=== PATIENT | male | born 1960 | race Caucasian/White ===

== ENCOUNTER → 2017-08-15 10:00 | Outpatient (CLI) | payer OTHER, SELFPAY ==
--- NOTE | 2017-08-15 | ASPIG_PTH ---
PATIENT: GUERRERO PLATA LOC: [facility]#:[id number] AGE/SX: 64/M ROOM: RE08/15/[address]: Dr. Misti Sotomayor MD : 1960 BED: DIS: SPEC #: [id number] RECD: 08/15/17 11:32 STATUS: DOM ENRIKE #: [id number] MARLENE: 08/15/17 00:[address]: Misti Sotomayor DEPT: CYTOLOGY RECD BY: Riley Gaitan ENTERED: 08/15/17 11:32 SP TYPE: ASP OUT OTHR DR: Dr. Demarco Hernandez MD Tissues: Thyroid gland, NOS Procedures: FNA Specimen Adequacy Pap Stain (control) Special Stain Group II Surgery Specimen Level IV Diff Quik Stain (control) Cell Block Cytology Other HEADER OPERATION: Thyroid FNA PRE-OP DIAGNOSIS: Right thyroid nodule TISSUE SUBMITTED: Right thyroid nodule DIAGNOSIS CYTOLOGY Right thyroid nodule, ultrasound-guided FNA (smears, cell block and cytospin): Paucicellular specimen with a few benign follicular cells. See cytology study and comment. SJ:rg 08/16/17 COMMENT The specimen is evaluated at the time of FNA by Dr. Parmar. Immediate Evaluation = Follicular cells are present. Correlation with clinical, radiologic findings and appropriate follow up are necessary. Please make reference to previous cytologies ([id number]) FNA, right thyroid nodule with diagnosis of consistent with colloid nodule, ([id number]) right thyroid nodule with diagnosis of bloody specimen and ([id number]) right thyroid nodule, ultrasound-guided FNA with diagnosis of consistent with benign follicular nodule. CYTOLOGY STUDY Slides are reviewed. The specimen is limited in evaluation due to lack of adequate number of follicular cells. The cell block is acellular. The smears and cytospin slides consist of only a few clusters of benign follicular cells and small amount of colloid. CYTOLOGY GROSS Received is 0.2 ml of reddish fluid labeled with the patient's name, and designated right thyroid nodule. Four imprints and three paps are made from the submitted fluid and the rest is added to CytoLyt for cell block preparation. Submitted for cytology study. / AM:vania 08/15/17 TC: Cannot code CPT: 52273, 05629, [id number], [id number]
--- NOTE | 2017-08-15 10:04 | US_ITS ---
STUDY: THYROID ULTRASOUND REASON FOR EXAM: Male, 56 years old. Ultrasound guided biopsy of 2 nodules in the right lobe of the thyroid. TECHNIQUE: Ultrasound evaluation of the thyroid was performed with real-time and static suarez-scale imaging. COMPARISON: None. FINDINGS: Under direct sonographic guidance, the surgeon performed an aspiration biopsy of 2 dominant nodules in the right lobe. US/US Thyroid Biopsy IMPRESSION: Successful ultrasound-guided biopsy of 2 and nodules in the right lobe of the thyroid. Electronically Signed: Donal Rodriges MD at 8:05 EDT Tel [phone], Service support ,
--- NOTE | 2017-08-15 21:59 | PCM.OPRPT ---
Report of Operation Date of Procedure: 08/15/17 Pre-Operative Diagnosis: right thyroid nodule Post-Operative Diagnosis: same Surgery/Procedure Performed:: US guided FNA of right thyroid nodule Description of Surgical Findings:: right thyroid nodule with calcifications - posterior in patient with thick neck Type of Anesthesia:: Local Anesthesiologist: none Specimen's removed: FNA of thyroid nodule - right Estimated Blood Loss (mL): minimal Fluids Replaced: none Description of Procedure: After informed consent was given, the patient was brought to the ultrasound suite, and placed in the supine position. Appropriate time out protocol was followed. Using the ultrasound transducer, the suspicious lesion was localized and noted. It was in the right thyroid lobe. The skin at where the biopsy needle would be inserted was then cleansed with betadyne and the skin and subcutaneous tissues at the biopsy site were infiltrated with 1% xylocaine. Using the US transducer as a guide, I guided the 22G needle attached to a 10 cc syringe into the right thyroid nodule. The needle was aspirated multiple times and then the needle was then withdrawn and with syringe was passed to the pathologist who immediately made slides for review. The needle was aspirated and then the needle was withdrawn and with syringe was passed to the pathologist who immediately made slides for review. The pathologist stated that the specimen was adequate for review. Hemostasis was controlled with pressure. A bandaid was applied to the site. The patient tolerated the procedure well. He was discharged from the radiology suite in stable condition. - Complications none noted
== END ==
PROVIDERS: Family Provider Family Medicine; PCP Family Medicine; Visit Provider Surgery
DX: E04.1 Nontoxic single thyroid nodule (principal)
CPT/HCPCS: 10022; 76942; 88161; 88172; 88305; 88313

== ENCOUNTER 2017-11-18 07:18 | Emergency (ER) | payer OTHER, SELFPAY ==
[2017-11-18 07:20] VITALS: BP 178/96; PULSE 92; RESP 16; TEMP 36.5; O2SAT 98; BMI 36.6
--- NOTE | 2017-11-18 07:38 | CT_ITS ---
STUDY: CT SOFT TISSUE NECK WITH CONTRAST REASON FOR EXAM: Male, 57 years old. History of thyroidectomy evaluate for abscess. RADIATION DOSAGE (If Supplied By Facility): CTDIvol = ( ) mGy, DLP = ( ) mGycm TECHNIQUE: The patient was scanned in a multi-detector CT scanner. High resolution transaxial imaging was performed following intravenous administration of 100 ml of Isovue 300 contrast material. Sagittal and coronal images were reconstructed. Individualized dose optimization techniques were used for this CT. COMPARISON: None. FINDINGS: There are punctate radiopaque densities anterior to the left side sternoclavicular muscle and posterior to the left side parotid gland. Normal bilateral tile conduit layer spaces. Normal bilateral parapharyngeal spaces. There is calcification of the bilateral carotid bulbs without stenosis. Normal bilateral sublingual and submandibular glands and spaces. Normal visualized nasopharynx. Normal retropharyngeal space. Normal perivertebral space. Normal visualized bilateral faucial tonsils. The visualized tongue, tongue base and oropharynx are normal. There are submandibular lymph nodes. There is peripheral soft tissue swelling and edema within the all soft tissues underlying the mandible. Normal epiglottis, bilateral vallecula and hypopharynx. The pre-epiglottic and paraglottic adipose spaces are normal. Normal visualized bilateral piriform sinuses, aryepiglottic folds, vocal cords, and arytenoid-cricoid articulations. Normal subglottic trachea. There is partial absence of the right-sided thyroid gland and postoperative change surgical clips. There is mild inhomogeneity of the left thyroid gland and a focal area of low attenuation measuring 5.2 mm. In the soft tissues deep to the skin and anterior to the hyoid bone there is a well-circumscribed peripherally enhancing fluid mass measures at least 6.1 x 1.8 x 3.3 cm. There is no evidence of bony erosion. The posterior aspect of this abscess is in close proximity to a branch of the external jugular vein. This vessel measures 5.2 mm and is best seen on sagittal image #45 courses coursing behind this abscess. Normal visualized pulmonary apices. There is near opacification of the right-sided maxillary sinus. There is ethmoid sinus mucosal thickening sphenoid sinus mucosal thickening left-sided maxillary mucosal thickening and partial opacification of the sphenoid sinuses. There is mild degenerative change in the cervical spine. CT/Soft Tissue Neck WITH Contrast IMPRESSION: There is a 6.1 x 1.8 x 3.3 cm superficial abscess anterior to the thyroid. There is adjacent cellulitis. There is reactive lymphadenopathy. Anatomic note should be made there is a prominent vessel behind this abscess. Partial right-sided thyroidectomy. Small 5.2 mm low attenuating nodule left thyroid. Electronically Signed: Paula Arcos MD at 9:21 EDT Tel , Service support ,
--- NOTE | 2017-11-18 08:04 | ED.VISSUMM ---
- ER Visit Summary Date of Service: 11/18/17 Chief Complaint: Possible neck abscess History of Present Illness: The patient is a 57 M who presents with swelling of his anterior neck that began this morning. Patient states he woke up and noticed some swelling over his anterior neck today. Patient states it feels like there is some pressure there. Patient had a partial thyroidectomy done a couple months ago at the [facility]. Patient states the swelling is over the surgical site. Patient is concerned over possible abscess to this area. Patient denies any fevers or chills. Patient denies any difficulty breathing or difficulty swallowing. Physical Examination: Vital signs are stable. Patient is afebrile. Patient is in no acute distress. Oral mucosa is pink and moist. Oropharynx is clear. Airway is patent. Neck is supple. There is edema, erythema, and induration of the anterior neck. I do not appreciate any fluctuance over this area. There is no adenopathy noted. Heart was regular rate and rhythm. Lungs are clear and equal bilaterally. There is good respiratory effort noted. The remaining physical exam is within normal limits. Test Results: CT scan of the soft tissue neck was obtained. There is a abscess to the anterior neck area. There is a prominent blood vessel behind the abscess. Emergency Department Course and Treatment: Patient was given a dose of Unasyn here. Due to the prominent blood vessel behind the abscess I do not feel comfortable performing an incision and drainage here in the emergency department. Patient has a surgeon at [facility] who performed his thyroid surgery 2 months ago. There was a delay in contacting the surgeon at [facility]. Dr. Medina from [facility] did return our call and accepted transfer the patient. Patient was transferred by his private vehicle. Disposition: Transferred to [facility] Impression: Neck abscess This note was generated with [employer] dictation software. It may contain incorrect words, spelling, and punctuation that were not noted in review of the chart prior to signing ED Disposition - Plan for ED Patient: Disposition: [facility] Chief Complaint: Abscess Diagnosis: Neck abscess Referrals: Demarco Hernandez MD [Primary Care Provider] -
[2017-11-18 08:07] LABS: Absolute Lymphocyte Count 1.57 X10^3/ul (0.83-4.51); Absolute Neutrophil Count 5.7 X10^3/uL (2.0-7.7); Basophil# 0.03 X10^3/uL; Basophil% 0.4 % (0-1); Eosinophil# 0.26 X10^3/uL; Eosinophils% 3.2 % (0-5); Hemoglobin 15.9 g/dl (13.0-16.5); Lymphocyte # 1.57 X10^3/ul (4.0); Lymphocyte % 19.3 % (19-41); Mean Corp Hgb Conc 35.3 g/gl (32-36); Mean Corpuscular Hgb 33.2 pg (27.0-32.0); Mean Corpuscular Volume 93.9 fL (80-94); Mean Platelet Vol. 11.1 fl (6.2-12.0); Monocyte# 0.51 X10^3/uL; Monocyte% 6.3 % (0-10); Neutrophil # 5.74 X10^3/uL (2.7-7.7); Neutrophil % 70.6 % (47-70); Platelet Count 132 K/mm3 (150-450); RBC Distribution Width CV 12.6 % (11.6-14.6); RBC Distribution Width SD 42.9 fl (35.1-43.9); Red Blood Count 4.79 M/mm3 (4.6-6.2); White Blood Count 8.1 K/mm3 (4.4-11.0)
[2017-11-18 08:08] LABS: POSITIVE COUNT NO; POSITIVE DIFFERENTIAL NO; POSITIVE MORPHOLOGY NO
[2017-11-18 08:14] LABS: Anion Gap 10 (5-15); BUN 12 mg/dL (7-18); BUN/Creat Ratio 10.2 RATIO (10-20); Calcium,Total 8.8 mg/dL (8.5-10.1); Chloride 104 mmol/L (98-107); Creatinine, Serum 1.18 mg/dL (0.70-1.30); EST Glomerular Filtration Rate 67 mL/min (>60); Est Glom Filt Rate - Afr Amer 82 mL/min (>60); Estimated Creatinine Clearance 66.02 ml/min; Glucose 182 mg/dL (74-106); Potassium 3.3 mmol/L (3.5-5.1); Sodium Level 140 mmol/L (136-145)
[2017-11-18 11:07] VITALS: BP 129/85; PULSE 51; RESP 16; O2SAT 95
[2017-11-18 13:15] VITALS: BP 129/85; PULSE 51; RESP 16; O2SAT 95
--- NOTE | 2017-11-18 13:17 | ED.RN ---
attempted to call report to [facility] and nurse unable to take call at this time.
== END 2017-11-18 13:00 | disposition short-term general hospital (02) ==
LOC: ED 07:39
PROVIDERS: Emergency Provider Emergency Medicine; Family Provider Family Medicine; PCP Family Medicine
DX: L02.11 Cutaneous abscess of neck (principal); I10 Essential (primary) hypertension; K21.9 Gastro-esophageal reflux disease without esophagitis
CPT/HCPCS: 70491; 80048; 85025; 96374; 99284; J7050; Q9967; A4216; J0295

== ENCOUNTER 2020-05-07 22:48 | Emergency (ER) | payer OTHER, SELFPAY ==
[2020-05-07 22:50] VITALS: BP 170/90; PULSE 76; RESP 16; TEMP 36.8; O2SAT 99; BMI 38.0
--- NOTE | 2020-05-07 23:07 | RAD_ITS ---
STUDY: X-RAY - UNILATERAL RIBS ( RIGHT ) WITH CHEST REASON FOR EXAM: Male, 59 years old. Fall, right posterior rib pain. TECHNIQUE - RIBS: 4 view(s) of the ribs. TECHNIQUE - CHEST: Single frontal view of the chest. COMPARISON: None. FINDINGS - RIBS: Normal visualized ribs without a demonstrated fracture. FINDINGS - CHEST: The lungs are clear and expanded. There is no demonstrated pleural abnormality. Normal size heart. Normal mediastinum and michael. Normal visualized pulmonary arteries. Normal visualized aortic arch and descending thoracic aorta. There are diffuse degenerative changes of the visualized thoracic spine. Normal visualized ribs, clavicles, and shoulders. There is no demonstrated abnormality of the visualized soft tissue structures of the upper abdomen. RAD/Ribs Uni Min 3V w/PA Chest IMPRESSION: RIBS: Normal x-ray examination of the ribs. CHEST: No acute cardiopulmonary process. Electronically Signed: Gianna Andrade MD at 23:49 EST Tel , Service support ,
--- NOTE | 2020-05-07 23:09 | ED.VIS.GEN ---
History of Present Illness Chief Complaint: Fall Informant: Patient Onset: Today Narrative: 59-year-old male presenting with right posterior rib pain and right hip pain. Patient states that he slipped and fell on his driveway today. Initially he did not have too much pain but he states over the course of the day it has been getting worse. Patient denies shortness of breath. Patient is ambulatory. He states it feels like he pulled his groin on the right. Denies paresthesias. Patient denies hitting his head or LOC. Past Medical History - Allergies and Home Meds Allergies/Adverse Reactions: Allergies No Known Allergies Allergy (Verified 05/07/20 22:49) Primary Care Physician: Demarco Hernandez MD [Primary Care Provider] - Prior records reviewed: Yes Past Medical History: - Lives: Spouse/ Significant Other Smoking Status: Former smoker Alcohol: None Drugs: None - Hypertension, GERD hypothyroidism Review of Systems General: Denies: Chills, Fever Eyes: Denies: Visual changes - left, Visual changes - right ENT: Denies: Bilateral ear pain, Left ear pain Cardiovascular: Denies: Chest pain, Palpitations Respiratory: Reports: - - Right posterior rib pain. Denies: Dyspnea, Cough Gastrointestinal: Denies: Abdominal pain, Nausea Musculoskeletal: Reports: Extremity Pain - Right inguinal pain. Denies: Swelling Skin: Denies: Rash, Abscess Neurological: Denies: Headache, Weakness Physical Exam Vital Signs/Narrative: Vital Signs Temp Pulse Resp BP Pulse Ox 05/07/20 22:50 98.2 F 76 16 170/90 H 99 General: Well nourished, No Acute Distress Head: Normocephalic, Atraumatic Eyes: Perrl, EOMI ENT: Moist mucous membranes, No rhinorrhea Cardiovascular: Regular rate, Regular rhythm Respiratory: No distress, CTA bilaterally, - - Full symmetric breath sounds and chest wall rise. No crepitance. Tenderness to palpation right posterior ribs. No ecchymosis or abrasions. Extremities: - - Is to palpation right inguinal area. Negative logroll right hip. Patient able to stand and walk across the room Skin: Normal color, No rash Neurological: Alert, Oriented x3 Psychological: Normal affect, Normal Mood Diagnostic/Tx/Re-eval Clinical Impression(s) from Imaging Studies Ribs w/Chest X-Ray 05/07/20 23:07 IMPRESSION: RIBS: Normal x-ray examination of the ribs. CHEST: No acute cardiopulmonary process. Electronically Signed: Gianna Andrade MD at 23:49 EST Tel , Service support , Hip/Pelvis X-Ray 05/07/20 23:22 IMPRESSION: Degenerative changes without acute osseous abnormality. at 0010 Reported and signed by: Renee Rueda MD Electronically Signed: Renee Rueda MD at 0:10 EST Tel , Service support , - Medical Decision Making 59-year-old male presenting after mechanical fall with right back pain as well as right inguinal pain. He was taken over to x-ray and complained of pain on the left hip so he had bilateral hip x-rays with the pelvis which interpreted by myself showed no acute fractures. Patient also had right rib series with PA chest that showed no obvious rib fractures and no pneumothorax as interpreted by myself. Patient was given initial dose of morphine but states he feels like he is having more of a spasm and requested a muscle relaxer and this was provided. Patient is stable for discharge home at this time. He will be given prescription for Flexeril. Impression: 1. Mechanical fall 2. Thoracic strain 3. Hip contusion ED Disposition - Plan for ED Patient: Disposition: Home or Assisted Living Instructions: ED Mechanical Fall, ED Hip Contusion, ED Thoracic Spine Strain Referrals: Demarco Hernandez MD [Primary Care Provider] -
[2020-05-07] MEDS: morphine 8 MG/ML Syringe 6 MG IM (23:11)
[2020-05-07] MEDS: Ondansetron ODT 4 MG Tablet PO (23:13)
--- NOTE | 2020-05-07 23:22 | RAD_ITS ---
HISTORY: Fall, bilateral hip pain. ADDITIONAL HISTORY: None provided. EXAMINATION/TECHNIQUE: XR Hips Bilateral with Pelvis when performed; Min 5 Views Bilateral Number of images including paperwork: 10 COMPARISON: None FINDINGS: BONES: No acute fracture. JOINTS: No subluxation. Mild degenerative changes of the hips. Degenerative changes of the sacroiliac joints, symphysis pubis and the visible spine. SOFT TISSUES: No distinct foreign body. RAD/Hips B/L min 2 views w/ Pelvis IMPRESSION: Degenerative changes without acute osseous abnormality. at 0010 Reported and signed by: Renee Rueda MD Electronically Signed: Renee Rueda MD at 0:10 EST Tel , Service support ,
[2020-05-08] MEDS: Orphenadrine 100 MG Tablet PO (00:18)
[2020-05-08 01:01] VITALS: PULSE 81; O2SAT 98
== END 2020-05-08 01:01 | disposition home or self-care (01) ==
LOC: ED 05-08 00:21
PROVIDERS: Emergency Provider Student in an Organized Health Care Education/Training Program; PCP Family Medicine
DX: S29.012A Strain of muscle and tendon of back wall of thorax, initial encounter (principal); S70.01XA Contusion of right hip, initial encounter; S70.02XA Contusion of left hip, initial encounter; W01.0XXA Fall on same level from slipping, tripping and stumbling without subsequent striking against object, initial encounter; Y93.9 Activity, unspecified; Y92.008 Other place in unspecified non-institutional (private) residence as the place of occurrence of the external cause; Y99.9 Unspecified external cause status; E03.9 Hypothyroidism, unspecified; I10 Essential (primary) hypertension; K21.9 Gastro-esophageal reflux disease without esophagitis; Z87.891 Personal history of nicotine dependence
CPT/HCPCS: 71101; 73521; 96372; 99283

== ENCOUNTER 2021-10-15 05:59 | Emergency (ER) | payer OTHER, SELFPAY ==
[2021-10-15 06:06] VITALS: BP 158/96; PULSE 55; RESP 16; TEMP 36; O2SAT 100; BMI 36.6
[2021-10-15] MEDS: Ondansetron 4 MG/2 ML Vial IV (06:32)
[2021-10-15] MEDS: Morphine 4 MG/ML Syringe IV (06:33)
[2021-10-15 06:52] LABS: Absolute Lymphocyte Count 2.01 X10^3/uL (0.83-4.51); Basophil# 0.05 X10^3/uL; Basophil% 0.6 % (0-1); Eosinophil# 0.34 X10^3/uL; Eosinophils% 4.3 % (0-5); Hematocrit 41.9 % (40-54); Hemoglobin 15.1 g/dL (13.0-16.5); Lymphocyte # 2.01 X10^3/ul (0.83-4.51); Lymphocyte % 25.7 % (19-41); Mean Corpuscular Hgb 32.3 pg (27.0-32.0); Mean Corpuscular Volume 89.7 fL (80-94); Mean Platelet Vol. 11.9 fl (6.2-12.0); Monocyte# 0.42 X10^3/uL; Monocyte% 5.4 % (0-10); NRBC Flagged by Analyzer 0 % (0-5); Neutrophil # 4.97 X10^3/uL (2.7-7.7); Neutrophil % 63.5 % (47-70); Platelet Count 136 K/mm3 (150-450); RBC Distribution Width CV 11.9 % (11.6-14.6); Red Blood Count 4.67 M/mm3 (4.6-6.2); White Blood Count 7.8 K/mm3 (4.4-11.0)
[2021-10-15 07:00] LABS: Prothrombin Time (Protime)PT. 12.8 SECONDS (11.7-14.9)
--- NOTE | 2021-10-15 07:00 | RAD_ITS ---
INDICATION: pain EXAMINATION/TECHNIQUE: X-RAY - LEFT XR Femur Min 2 Views 6 VIEWS COMPARISON: 05/07/2020 FINDINGS: SOFT TISSUES: Vascular calcifications. Soft tissue swelling in the distal thigh. No radiopaque foreign body. BONES/JOINTS: Moderately displaced comminuted spiral fracture of the distal femoral diaphysis extending to the metadiaphysis and the proximal margin of the knee arthroplasty femoral component. Mild degenerative changes, similar compared to the prior. No dislocation. RAD/Femur Min 2 Views IMPRESSION: Moderately displaced comminuted fracture of the distal femur as above. Electronically Signed: Toney Funez MD at 7:17 EDT ,
--- NOTE | 2021-10-15 07:00 | RAD_ITS ---
INDICATION: pain EXAMINATION/TECHNIQUE: X-RAY - XR Pelvis 1 or 2 Views 1 VIEWS COMPARISON: None. FINDINGS: SOFT TISSUES: No soft tissue swelling or gas. No radiopaque foreign body. BONES/JOINTS: No acute fracture or subluxation.. Normal alignment. Preservation of the joint space.. No sclerotic or destructive changes observed. RAD/Pelvis 1 or 2 Views IMPRESSION: No acute fracture or dislocation. Electronically Signed: Toney Funez MD at 7:19 EDT ,
[2021-10-15 07:01] LABS: Partial Thromboplast Time 29.5 Seconds (24.1-36.2)
[2021-10-15 07:05] LABS: Anion Gap 7 (5-15); BUN 12 mg/dL (7-18); Calcium,Total 8.9 mg/dL (8.5-10.1); Chloride 109 mmol/L (98-107); Creatinine, Serum 1.09 mg/dL (0.70-1.30); EST Glomerular Filtration Rate 73 mL/min (>60); Est Glom Filt Rate - Afr Amer 88 mL/min (>60); Estimated Creatinine Clearance 68.85 ml/min; Glucose 131 mg/dL (74-106); Potassium 3.6 mmol/L (3.5-5.1); Sodium Level 142 mmol/L (136-145)
[2021-10-15] MEDS: HYDROmorphone 1 MG/ML Syringe IV ×2 (07:14→10:24)
--- NOTE | 2021-10-15 08:00 | EX.ED.DYSGE1 ---
HPI History of Present Illness Chief Complaint: Lower Extremity Injury Narrative Narrative: Patient is a 60-year-old male with past medical history of hypertension and hypothyroidism. He has had previous left knee replacement as well. He states that this was roughly 20 years ago. He states left at 5 AM he was walking out to his car when he slipped and twisted. He states he did not strike his head or have any loss of consciousness when he fell but he had severe pain in his left lower leg/knee region. He states he was not able to stand secondary to the pain and therefore EMS was contacted to bring him in for evaluation. [facility] Medical History Hypertension Home Medications cyclobenzaprine 10 mg tablet 10 mg PO Q8H PRN PRN Muscle Spasm #21 tabs 05/08/20 [Rx Last Taken Unknown] amlodipine 10 mg tablet 1 tab PO DAILY 10/15/21 [History Last Taken Unknown] bisoprolol 5 mg-hydrochlorothiazide 6.25 mg tablet 2 tab PO DAILY 10/15/21 [History Last Taken Unknown] levothyroxine 137 mcg tablet 137 mcg PO DAILY 10/15/21 [History Last Taken Unknown] levothyroxine 137 mcg tablet 274 mcg PO QODAY 10/15/21 [History Last Taken Unknown] potassium chloride 20 mEq tablet,extended release(part/cryst) 1 tab PO DAILY 10/15/21 [History Last Taken Unknown] Allergy/AdvReac Type Severity Reaction Status Date / Time codeine Allergy Itching Verified 10/15/21 06:01 Surgical History (Updated 10/15/21 @ 06:02 by Swapnil Phillips) History of cholecystectomy History of knee replacement procedure of left knee Social History Smoking Status: Never smoker [facility] ED Constitutional Constitutional ED: Denies chills or fever(s) Eyes Eyes: Denies change in vision ENT ENT ED: Denies sore throat Cardiovascular Cardiovascular: Denies chest pain Respiratory/Chest Respiratory/Chest: Denies cough or dyspnea Gastrointestinal Gastrointestinal: Denies abdominal pain, diarrhea, nausea or vomiting Genitourinary Genitourinary ED: Denies dysuria Musculoskeletal Musculoskeletal: Reports other Details: Positive left leg/knee pain ; Denies back pain, myalgias or neck pain Integumentary Denies rash Neurologic Neurologic: Denies headache(s) Hematologic/Lymphatic Hematologic/Lymphatic: Denies easy bleeding or easy bruising EXAM Physical Exam Const Vital Signs: 10/15/21 06:06 Temperature 96.8 F L Temperature Source Temporal Pulse Rate 55 L Respiratory Rate 16 Blood Pressure 158/96 H Blood Pressure Mean 116 Pulse Ox 100 Oxygen Delivery Method Room Air Positive well nourished and well developed General Appearance ED: well developed HEENT HEENT Narrative: No signs of depressed or basilar skull fracture Eyes PERRL and EOMs intact bilaterally Neck supple Neck Narrative: No bony deformity or step-off of the cervical spine no midline pain with palpation Chest Wall palpation of chest normal Resp normal respiratory effort and clear to auscultation bilaterally Cardio regular rate and regular rhythm Rate: other Other Details: Radial pulses are plus 2 out of 4 bilaterally are equal and symmetric GI non-tender and non-distended Auscultation: normoactive bowel sounds Palpation: soft Extremity Extremity Narrative: Pelvis is stable. Bilateral lower extremities are neurovascularly intact . the left lower leg is shortened and rotated externally. There is soft tissue swelling along the distal left femur into the knee. There is pain on palpation at the site as well as along the left greater trochanter region. Active and passive range of motion of the left leg is severely limited secondary to pain. Remainder the exam is normal Neuro oriented x3 and CN's II-XII intact bilaterally Sensorium / Orientation: alert Psych mental status grossly normal Skin no rashes or lesions noted Skin Narrative: Capillary refill is less than 3 seconds MDM MDM MDM Narrative Medical decision making narrative: Patient presented to the ER after mechanical fall and therefore there is no need for cardiac or syncope work-up. Exam is concerning for a left lower leg injury such as a femoral neck or distal femur fracture. X-rays were obtained which did confirm a comminuted left distal femur fracture. The case was discussed with orthopedic on-call Dr. Marquez. He states with the patient's previous prosthetic of the left knee and the fracture extending down to it that he feels would be better suited at a higher level of care. This was discussed with the patient and he agrees to go to [facility]. Therefore they were contacted and they do agree to accept the patient at this time. Lab Data Attestation: I reviewed the patient's lab results. Labs: Laboratory Results - last 24 hr 10/15/21 10/15/21 10/15/21 06:10 06:10 06:10 WBC 7.8 RBC 4.67 Hgb 15.1 Hct 41.9 MCV 89.7 MCH 32.3 H MCHC 36.0 RDW Std Deviation 39.0 RDW Coeff of Trace 11.9 Plt Count 136 L MPV 11.9 Immature Gran % (Auto) 0.500 Neut % (Auto) 63.5 Lymph % (Auto) 25.7 [place] % (Auto) 5.4 Eos % (Auto) 4.3 Baso % (Auto) 0.6 Absolute Neuts (auto) 5.0 Absolute Lymphs (auto) 2.01 Nucleated RBC % 0 PT 12.8 INR 1.0 APTT 29.5 Sodium 142 Potassium 3.6 Chloride 109 H Carbon Dioxide 26.0 Anion Gap 7 BUN 12 Creatinine 1.09 Estim Creat Clear Calc 68.85 Est GFR (MDRD) Af Amer 88 Est GFR (MDRD) Non-Af 73 BUN/Creatinine Ratio 11.0 Glucose 131 H Calcium 8.9 Radiography Diagnostic Testing: Clinical Impression(s) from Imaging Studies Femur X-Ray 10/15/21 07:00 IMPRESSION: Moderately displaced comminuted fracture of the distal femur as above. Electronically Signed: Toney Funez MD at 7:17 EDT , Pelvis X-Ray 10/15/21 07:00 IMPRESSION: No acute fracture or dislocation. Electronically Signed: Toney Funez MD at 7:19 EDT , X-ray of the pelvis and left femur as reviewed by the emergency medicine physician shows a comminuted mildly displaced distal left femur fracture but no femoral neck or pelvic injury Discharge Plan Triage Chief Complaint: Lower Extremity Injury ED Provider: Eliseo Ivey Dx/Rx/DC Orders Clinical Impression: Closed fracture of distal end of left femur, Hypertension, Accidental fall Prescriptions: No Action cyclobenzaprine 10 MG tablet 10 mg PO Q8H PRN PRN (Reason: Muscle Spasm) Qty: 21 0RF levothyroxine 137 mcg tablet 137 mcg PO DAILY Label Comments: take 1 tablet by mouth every day except Sunday and Sunday. Take 2 tablets on Sunday and Sunday. Rx Instructions: do not take sunday and sunday levothyroxine 137 mcg tablet 274 mcg PO QODAY Label Comments: take 1 tablet by mouth every day except Sunday and Sunday. Take 2 tablets on Sunday and Sunday. Rx Instructions: sunday and sunday bisoprolol-hydrochlorothiazide 5-6.25 mg tablet 2 tab PO DAILY Label Comments: TAKE 2 TABLETS BY MOUTH EVERY DAY potassium chloride 20 mEq tablet,ER particles/crystals 1 tab PO DAILY Label Comments: Take 1 tablet by mouth once daily. amlodipine 10 mg tablet 1 tab PO DAILY Label Comments: TAKE 1 TABLET BY MOUTH EVERY DAY Primary Care Provider: Demarco Hernandez Referrals: Demarco Hernandez MD [Primary Care Provider] - Disposition Disposition: Acute Care Hospital Discharge Location: [facility]
[2021-10-15 08:37] VITALS: BP 155/40; PULSE 57; RESP 16; TEMP 36.7; O2SAT 95
== END 2021-10-15 10:54 | disposition short-term general hospital (02) ==
PROVIDERS: Emergency Provider Emergency Medicine; PCP Family Medicine; Visit Provider Emergency Medicine
DX: S72.402A Unspecified fracture of lower end of left femur, initial encounter for closed fracture (principal); I10 Essential (primary) hypertension; E03.9 Hypothyroidism, unspecified; W01.0XXA Fall on same level from slipping, tripping and stumbling without subsequent striking against object, initial encounter
CPT/HCPCS: 72170; 73552; 80048; 85025; 85610; 85730; 87428; 96374; 96375; 96376; 99285; A4216; J2405

== ENCOUNTER 2021-10-19 15:45 | Inpatient (IN) | payer OTHER, SELFPAY ==
[2021-10-19 15:55] VITALS: BP 158/79; PULSE 95; RESP 16; TEMP 36.6; O2SAT 95; BMI 21.7
[2021-10-19 16:28] VITALS: BMI 21.6
[2021-10-19] MEDS: oxyCODONE 5 MG Tablet PO ×2 (16:52→21:32)
[2021-10-19] MEDS: Senna/Docusate Sodium 1 Tablet PO (16:52)
[2021-10-19 18:55] VITALS: PULSE 99; RESP 16
--- NOTE | 2021-10-19 19:43 | HP.PCM_ITS ---
[facility] - General General Date of Admission: 10/19/21 Date of Service: 10/19/21 Chief Complaint: Here for rehab. HPI Narrative 10/15/2021 GUERRERO PLATA, is a 60 Male who presents to [facility] with fall. He slipped, injured left knee, heard pop before falling down. No loss of consciousness, no head injury. Immediate left knee pain, unable to bear weight. X-ray showed left periprosthetic distal femur fracture. Transfer to [facility]. 10/15/2021 Admit to [facility]. 10/16/2021 Orthopedics performed left retrograde femoral nail. 10/17/2021 Stop IV fluids, eating well. 10/17/2021 Pain control. Lovenox 40mg daily x 21 days for DVT prophylaxis thru 11/06/2021. Ancef 2gm q8h x 2 doses. Touch down weight bearing left lower extremity. 10/19/2021 Admit to TCU with debility, here for rehabilitation, strengthening, prior to discharge home with . [facility] Medical History (Updated 10/19/21 @ 19:[address] Collin Bangura MD) Hypertension Home Medications amlodipine 10 mg tablet 1 tab PO DAILY BP 10/15/21 [History Last Taken Unknown] bisoprolol 5 mg-hydrochlorothiazide 6.25 mg tablet 2 tab PO DAILY BP 10/15/21 [History Last Taken Unknown] levothyroxine 137 mcg tablet 137 mcg PO .MOWETHFRSA thyroid 10/15/21 [History Last Taken Unknown] levothyroxine 137 mcg tablet 274 mcg PO .TUSU thyroid 10/15/21 [History Last Taken Unknown] potassium chloride 20 mEq tablet,extended release(part/cryst) 1 tab PO DAILY supplement 10/15/21 [History Last Taken Unknown] enoxaparin 40 mg/0.4 mL subcutaneous syringe 40 mg subcut DAILY blood thinner 10/19/21 [History Last Taken Unknown] hydrochlorothiazide 12.5 mg capsule 12.5 mg PO DAILY BP/water pill 10/19/21 [History Last Taken Unknown] omega-3 fatty acids 2,000 mg PO DAILY supplement 10/19/21 [History Last Taken Unknown] omeprazole 20 mg capsule,delayed release 20 mg PO DAILY acid reflux 10/19/21 [History Last Taken Unknown] oxycodone 5 mg capsule 5 mg PO Q6H PRN Pain (Scale Score 6-10) 10/19/21 [History Last Taken Unknown] polyethylene glycol 3350 17 gram oral powder packet (Miralax) 17 g PO DAILY PRN Constipation 10/19/21 [History Last Taken Unknown] senna-docusate sodium tablet 1 tab PO BID stool softener 10/19/21 [History Last Taken Unknown] Allergy/AdvReac Type Severity Reaction Status Date / Time codeine Allergy Itching Verified 10/15/21 06:01 Family History (Updated 10/19/21 @ 19:[address] Collin Bangura MD) Mother Cancer CAD (coronary artery disease) Diabetes Father Cancer Brother Prostate cancer Surgical History (Updated 10/19/21 @ 19:[address] Collin Bangura MD) History of cholecystectomy History of knee replacement procedure of left knee History of thyroidectomy, subtotal History of umbilical hernia repair Social History (Updated 10/19/21 @ 19:[address] Collin Bangura MD) household members: spouse Smoking Status: Former smoker Smokeless tobacco user: snuff alcohol intake: current alcohol intake frequency: 0-2 drinks per day substance use type: does not use ROS Constitutional Constitutional: Denies chills, fever(s) or weight gain ENT HEENT: Denies headache(s), nasal congestion or nasal discharge Cardiovascular Cardiovascular: Denies chest pain or palpitations Respiratory/Chest Respiratory/Chest: Denies cough, excessive phlegm production or shortness of breath with exertion Gastrointestinal Gastrointestinal: Denies abdominal pain, nausea or vomiting Genitourinary Genitourinary: Denies dysuria Musculoskeletal Musculoskeletal: Denies joint pain or joint swelling Integumentary Integumentary: Denies rash or wounds Neurologic Neurologic: Denies focal weakness, numbness or tingling Psychiatric Psychiatric: Denies anxiety, auditory hallucinations, depression, homicidal ideation or suicidal ideation Vital Signs Vital Signs Vital Signs: 10/19/21 15:55 10/19/21 18:55 Temperature 97.9 F Temperature Source Oral Pulse Rate 95 99 Pulse Rhythm Irregular Pulse Strength Normal (2+) Respiratory Rate 16 16 Respiratory Effort Normal Non-Labored Respiratory Depth Normal Respiratory Pattern Normal Blood Pressure 158/79 H Blood Pressure Mean 105 Blood Pressure Source Monitor Blood Pressure Position Sitting Blood Pressure Location Right Arm Pulse Ox 95 Oxygen Delivery Method Room Air Room Air Weight Weight: 64.41 kg Body Mass Index (BMI) 21.6 Physical Exam Const alert General Appearance: cooperative HEENT normocephalic Eyes PERRL and EOMs intact bilaterally Neck supple, no JVD and no carotid bruits Resp normal respiratory effort, normal air movement and clear to auscultation bilaterally Cardio regular rate and regular rhythm GI normal to inspection, nondistended, normoactive bowel sounds, non-tender and non-distended Extremity normal capillary refill General Extremity: Negative for edema Skin no rashes or lesions noted General Skin Exam: no breakdown Psych affect normal Appearance: appropriate Assessment & Plan Assessment/Plan (1) Debility: (2) Closed fracture of distal end of left femur: (3) Gastroesophageal reflux disease: (4) Hypokalemia: (5) Hypothyroidism: (6) Hypertension: PLAN: Plan 60 year old male with below past medical history hospitalized fo left periprosthetic distal femur fracture, underwent left retrograde femoral nail 10/16/2021, admitted to TCU with debility, here for rehabilitation, strengthening, prior to discharge home with . * Debility - PT/OT. * Pain - Tylenol 1000mg q8, Tramadol 50mg q6h prn pain (1-5), Oxycodone 5mg q4h prn pain (6-10) * Bowel - Miralax 17gm daily, senna/colace 2 tablets bid, Dulcolax 10mg daily prn. * Adult immunization - Administer pneumonia vaccine, covid vaccine, flu vaccine. * DVT prophylaxis - Lovenox 40mg sc daily thru 11/06/2021. * Hypertension - Bisoprolol 10mg daily, HCTZ 12.5mg daily, Amlodipine 10mg daily. * Hypothyroidism - Levothyroxine 137mcg 5 days/week, 274mcg 2 days/week. * Hyperlipidemia - Cocoa 3 2gm daily. * GERD - Pantoprazole 20mg daily. * Hypokalemia - KCL 20meq daily.
[2021-10-19] MEDS: Acetaminophen 500 MG Tablet 1000 MG PO (21:33)
[2021-10-19] MEDS: traMADol 50 MG Tablet PO (23:22)
[2021-10-20] MEDS: oxyCODONE 5 MG Tablet PO ×5 (01:33→21:00)
[2021-10-20 05:00] VITALS: BP 135/65; PULSE 78; RESP 92; TEMP 37.2; O2SAT 92
[2021-10-20] MEDS: Enoxaparin 40 MG/0.4 ML Syringe SC (05:01)
[2021-10-20] MEDS: Polyethylene Glycol 3350 17 GM PACKET PO (05:01)
[2021-10-20] MEDS: Levothyroxine 137 MCG Tablet PO (05:01)
[2021-10-20] MEDS: Senna/Docusate Sodium 1 Tablet 2 TABLET PO ×2 (05:02→17:34)
[2021-10-20] MEDS: Omega-3 Acid Ethyl Esters 1 GM Capsule 2 GM PO (05:02)
[2021-10-20] MEDS: amLODIPine 10 MG Tablet PO (05:02)
[2021-10-20] MEDS: Pantoprazole Sodium 20 MG Tablet PO (05:02)
[2021-10-20] MEDS: Bisoprolol Fumarate 5 MG Tablet 10 MG PO (05:03)
[2021-10-20] MEDS: hydroCHLOROthiazide 6.25mg TAB 12.5 MG PO (05:04)
[2021-10-20] MEDS: Acetaminophen 500 MG Tablet 1000 MG PO ×3 (05:04→21:00)
[2021-10-20 05:47] LABS: Absolute Lymphocyte Count 1.06 X10^3/uL (0.83-4.51); Absolute Neutrophil Count 4.8 X10^3/uL (2.0-7.7); Basophil# 0.02 X10^3/uL; Basophil% 0.3 % (0-1); Eosinophil# 0.29 X10^3/uL; Eosinophils% 4.3 % (0-5); Hematocrit 25.5 % (40-54); Hemoglobin 8.6 g/dL (13.0-16.5); Lymphocyte # 1.06 X10^3/ul (0.83-4.51); Lymphocyte % 15.7 % (19-41); Mean Corp Hgb Conc 33.7 g/dL (32-36); Mean Corpuscular Hgb 32.6 pg (27.0-32.0); Mean Corpuscular Volume 96.6 fL (80-94); Mean Platelet Vol. 10.8 fl (6.2-12.0); Monocyte# 0.47 X10^3/uL; Monocyte% 6.9 % (0-10); NRBC Flagged by Analyzer 0.3 % (0-5); Neutrophil # 4.84 X10^3/uL (2.7-7.7); Neutrophil % 71.5 % (47-70); Platelet Count 154 K/mm3 (150-450); RBC Distribution Width CV 13.4 % (11.6-14.6); RBC Distribution Width SD 44.9 fl (35.1-43.9); Red Blood Count 2.64 M/mm3 (4.6-6.2); White Blood Count 6.8 K/mm3 (4.4-11.0)
[2021-10-20 06:18] LABS: Anion Gap 5 (5-15); BUN 11 mg/dL (7-18); BUN/Creat Ratio 13.3 RATIO (10-20); Calcium,Total 8.5 mg/dL (8.5-10.1); Chloride 103 mmol/L (98-107); Creatinine, Serum 0.82 mg/dL (0.70-1.30); EST Glomerular Filtration Rate 101 mL/min (>60); Est Glom Filt Rate - Afr Amer 122 mL/min (>60); Estimated Creatinine Clearance 86.19 ml/min; Glucose 129 mg/dL (74-106); Potassium 3.6 mmol/L (3.5-5.1); Sodium Level 137 mmol/L (136-145)
[2021-10-20] MEDS: Potassium Chloride Oral Tablet 20 MEQ PO (08:49)
[2021-10-20] MEDS: Tuberculin,Purif.prot.deriv. 50 TU/ML Vial 0.1 ML ID (11:27)
[2021-10-20] MEDS: traMADol 50 MG Tablet PO (13:51)
[2021-10-20 16:00] VITALS: BP 116/64; PULSE 68; RESP 16; TEMP 36.7; O2SAT 96
[2021-10-20] MEDS: Bisacodyl 5 MG Tablet 10 MG PO (21:00)
[2021-10-20 23:00] VITALS: PULSE 72; RESP 18
[2021-10-21] MEDS: oxyCODONE 5 MG Tablet PO ×5 (00:57→22:13)
[2021-10-21] MEDS: traMADol 50 MG Tablet PO ×2 (03:01→09:14)
[2021-10-21] MEDS: Acetaminophen 500 MG Tablet 1000 MG PO ×3 (05:33→22:13)
[2021-10-21] MEDS: Omega-3 Acid Ethyl Esters 1 GM Capsule 2 GM PO (05:33)
[2021-10-21] MEDS: Pantoprazole Sodium 20 MG Tablet PO (05:33)
[2021-10-21] MEDS: amLODIPine 10 MG Tablet PO (05:34)
[2021-10-21] MEDS: hydroCHLOROthiazide 6.25mg TAB 12.5 MG PO (05:34)
[2021-10-21] MEDS: Senna/Docusate Sodium 1 Tablet 2 TABLET PO (05:35)
[2021-10-21] MEDS: Enoxaparin 40 MG/0.4 ML Syringe SC (05:35)
[2021-10-21] MEDS: Levothyroxine 137 MCG Tablet PO (05:35)
[2021-10-21] MEDS: Bisoprolol Fumarate 5 MG Tablet 10 MG PO (05:35)
[2021-10-21] MEDS: Polyethylene Glycol 3350 17 GM PACKET PO (05:36)
[2021-10-21] MEDS: Potassium Chloride Oral Tablet 20 MEQ PO (09:14)
[2021-10-21] MEDS: Magnesium Citrate 300 ML PO (09:14)
--- NOTE | 2021-10-21 12:46 | NURSING ---
Updated Family and pt on positive staff member.
[2021-10-21] MEDS: Pneumococcal Vaccine 20 Valent 0.5 ML Syringe IM (13:23)
[2021-10-21 15:07] VITALS: BP 126/64; PULSE 58; RESP 14; TEMP 36.6; O2SAT 93
--- NOTE | 2021-10-21 15:15 | PCM.PN.DRR ---
TCU RX Drug Regimen Review Subjective: TCU Admission. 60 YOM presented to the ER with a fall. Transferred to [facility] and hospitalized for left periprosthetic distal femur fracture. Resident underwent left retrograde femoral nail on 10/16/21. Admitted to TCU with debility for strengthening and rehabilitation. Objective: Allergies codeine Allergy (Verified 10/15/21 06:01) Itching Current Medications Generic Name Dose Route Start Last Admin Trade Name Freq PRN Reason Stop Dose Admin Acetaminophen 1,000 mg 10/19/21 22:00 10/21/21 13:26 Acetaminophen 500 Mg Tablet PO 1,000 mg Q8 VIVIANA Administration Amlodipine Besylate 10 mg 10/20/21 06:00 10/21/21 05:34 Amlodipine 10 Mg Tablet PO 10 mg DAILY VIVIANA Administration Bisacodyl 10 mg 10/19/21 20:01 10/20/21 21:00 Bisacodyl 5 Mg Tablet PO 10 mg DAILY PRN Administration Constipation Bisoprolol Fumarate 10 mg 10/20/21 06:00 10/21/21 05:35 Bisoprolol Fumarate 5 Mg Tablet PO 10 mg DAILY VIVIANA Administration Enoxaparin Sodium 40 mg 10/20/21 06:00 10/21/21 05:35 Enoxaparin 40 Mg/0.4 Ml Syringe SC 11/06/21 23:55 40 mg DAILY VIVIANA Administration Hydrochlorothiazide 12.5 mg 10/20/21 06:00 10/21/21 05:34 Hydrochlorothiazide 6.25mg Tab PO 12.5 mg DAILY VIVIANA Administration Levothyroxine Sodium 137 mcg 10/20/21 06:00 10/21/21 05:35 Levothyroxine 137 Mcg Tablet PO 137 mcg MoWeThFrSa@0600 VIVIANA Administration Levothyroxine Sodium 274 mcg 10/23/21 06:00 Levothyroxine 137 Mcg Tablet PO SuTu@0600 VIVIANA Xhopd-3-Ppwr Ethyl Esters 2 gm 10/20/21 06:00 10/21/21 05:33 Colbert-3 Acid Ethyl Esters 1 Gm Capsule PO 2 gm DAILY VIVIANA Administration Oxycodone HCl 5 mg 10/19/21 20:02 10/21/21 10:38 Oxycodone 5 Mg Tablet PO 5 mg Q4H PRN PRN Administration Pain (Scale Score 6-10) Pantoprazole Sodium 20 mg 10/20/21 06:00 10/21/21 05:33 Pantoprazole Sodium 20 Mg Tablet PO 20 mg DAILY VIVIANA Administration Polyethylene Glycol 17 gm 10/20/21 06:00 10/21/21 05:36 Polyethylene Glycol 3350 17 Gm Packet PO 17 gm DAILY VIVIANA Administration Potassium Chloride 20 meq 10/20/21 08:00 10/21/21 09:14 Potassium Chloride Oral Tablet 20 Meq PO 20 meq DAILYCM VIVIANA Administration Senna/Docusate Sodium 2 tablet 10/20/21 06:00 10/21/21 05:35 Senna/Docusate Sodium 1 Tablet PO 2 tablet BID VIVIANA Administration Sodium Chloride 10 - 40 ml 10/19/21 16:26 0.9% Saline Lock 10 Ml Syringe IV UD PRN SALINE FLUSH Tizanidine HCl 4 mg 10/21/21 07:48 Tizanidine Hcl 2 Mg Tablet PO Q8H PRN PRN MUSCLE SPASM Tramadol HCl 50 mg 10/19/21 20:01 10/21/21 09:14 Tramadol 50 Mg Tablet PO 50 mg Q6H PRN PRN Administration Pain Score 1-5 Tuberculin PPD 0.1 ml 10/27/21 10:00 Tuberculin,Purif.Prot.Deriv. 50 Tu/Ml Vial ID 10/27/21 10:01 X1 ONE Problem List (Last Reviewed 10/19/21 @ 19:[address] Collin Bangura MD) Debility (Acute) Gastroesophageal reflux disease (Acute) Hypokalemia (Acute) Hypothyroidism (Acute) Closed fracture of distal end of left femur (Acute) Hypertension (Chronic) Vital Signs Temp Pulse Resp BP Pulse Ox O2 Del Method 97.8 F 58 L 14 126/64 H 93 Room Air 10/21/21 15:07 10/21/21 15:07 10/21/21 15:07 10/21/21 15:07 10/21/21 15:07 10/21/21 15:07 Oxygen Delivery Method Room Air Weight: 109.769 kg Body Mass Index (BMI) 21.6 Sodium 137 mmol/L (136-145) 10/20/21 05:30 Potassium 3.6 mmol/L (3.5-5.1) 10/20/21 05:30 Chloride 103 mmol/L (98-107) 10/20/21 05:30 Carbon Dioxide 29.0 mmol/L (21.0-32.0) 10/20/21 05:30 Anion Gap 5 (5-15) 10/20/21 05:30 BUN 11 mg/dL (7-18) 10/20/21 05:30 Creatinine 0.82 mg/dL (0.70-1.30) 10/20/21 05:30 Est GFR (MDRD) Af Amer 122 mL/min (>60) 10/20/21 05:30 Est GFR (MDRD) Non-Af 101 mL/min (>60) 10/20/21 05:30 BUN/Creatinine Ratio 13.3 RATIO (10-20) 10/20/21 05:30 Glucose 129 mg/dL (74-106) H 10/20/21 05:30 Assessment/Plan: 1. Pain: acetaminophen 1000mg PO Q8, tramadol 50mg PO Q6H PRN pain 1-5 and oxycodone 5mg PO Q4H PRN pain 6-10. Resident has received 4 doses of tramadol (pain score 6/8 in knee/leg/thigh) and 9 doses of oxycodone (pain score 5-8 in leg/thigh/knee). Please continue to monitor for increased pain, PRN usage, constipation (no documented BM, on bowel regimen), renal function and respiratory depression. 2. Bowel: Miralax 17gm PO daily, senna/docusate 2T PO BID and bisacodyl 10mg PO daily PRN constipation. Please continue to monitor for S/S of constipation and PRN usage. Resident has not had a documented bowel movement. Has had 1 dose of bisacodyl. 3. DVT prophylaxis: enoxaparin 40mg SC daily thru 11/06/21. Please continue to monitor for S/S of bleeding/DVT, hemoglobin (last 8.6g/dL), platelets (last 154,000) and renal function. 4. Hypertension: bisoprolol 10mg PO daily, hydrochlorothiazide 12.5mg PO daily and amlodipine 10mg PO daily. Please continue to monitor BP (last 126/64), HR (last 58), sodium (last 137mmol/L), potassium (last 3.6mmol/L), swelling and renal function. 5. Hypokalemia: potassium chloride 20mEq PO DAILYCM. Please continue to monitor potassium levels. 6. Hypothyroidism: levothyroxine 137mcg PO daily except 274mcg Sunday and Sunday. Resident does not have a TSH level in the chart. Please consider ordering one now and then annually as clinically appropriate. Thanks. Please continue to monitor for S/S of hypo/hyperthyroidism. 7. Hyperlipidemia: Lovaza 2gm PO daily. Resident does not have a lipid panel. Please consider ordering one now and then annually as clinically appropriate. Thanks. 8. GERD: pantoprazole 20mg PO daily. Please continue to monitor for S/S of GERD and diarrhea. Assessment/Plan for indications treated with psychotropic medications: None Medical chart and medication regimen reviewed. The following medication irregularities or issues were identified: *1. Levothyroxine 137mcg PO daily except 274mcg Sunday and Sunday. Resident does not have a TSH level in the chart. Please consider ordering one now and then annually as clinically appropriate. Thanks. *2. Lovaza 2gm PO daily. Resident does not have a lipid panel. Please consider ordering one now and then annually as clinically appropriate. Thanks. Date of Note:: 10/21/21
--- NOTE | 2021-10-21 17:06 | CASEMGMT ---
Social Work SW met with pt and introduced self and role of SW. SW reviewed code status and assisted pt with completing MOLST. Pt wishes for full code with intubation. MOLST form communicated to physician and placed in pt chart. SW updated pt that insurance NRD is 10/28 and continued stay is not guaranteed. 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 Therefore, pt will be home to assist upon discharge. SW will continue to follow for discharge planning. CARIN Anderson
[2021-10-21] MEDS: tiZANidine HCl 2 MG Tablet 4 MG PO (22:17)
[2021-10-22 05:16] VITALS: BP 118/64; PULSE 63; RESP 18; TEMP 36.7; O2SAT 96
[2021-10-22] MEDS: Acetaminophen 500 MG Tablet 1000 MG PO ×3 (05:23→20:13)
[2021-10-22] MEDS: hydroCHLOROthiazide 6.25mg TAB 12.5 MG PO (05:23)
[2021-10-22] MEDS: Enoxaparin 40 MG/0.4 ML Syringe SC (05:23)
[2021-10-22] MEDS: Omega-3 Acid Ethyl Esters 1 GM Capsule 2 GM PO (05:23)
[2021-10-22] MEDS: amLODIPine 10 MG Tablet PO (05:23)
[2021-10-22] MEDS: Bisoprolol Fumarate 5 MG Tablet 10 MG PO (05:23)
[2021-10-22] MEDS: Pantoprazole Sodium 20 MG Tablet PO (05:23)
[2021-10-22] MEDS: Levothyroxine 137 MCG Tablet PO (05:24)
[2021-10-22] MEDS: traMADol 50 MG Tablet PO (05:29)
[2021-10-22] MEDS: Senna/Docusate Sodium 1 Tablet 2 TABLET PO ×2 (05:29→17:14)
[2021-10-22] MEDS: oxyCODONE 5 MG Tablet PO ×3 (08:40→20:13)
[2021-10-22] MEDS: Potassium Chloride Oral Tablet 20 MEQ PO (08:40)
[2021-10-22 15:16] VITALS: BP 132/76; PULSE 63; RESP 16; TEMP 36.2; O2SAT 92
--- NOTE | 2021-10-22 20:33 | NURSING ---
Dressings removed from surgical incision sites. All sites w/ intact messi, no redness or signs of infection, small amount dried blood on knee incision. Cleansed w/ soap and water and patted dry. DSD applied.
[2021-10-22 20:34] VITALS: PULSE 61; RESP 16; O2SAT 94
[2021-10-23] MEDS: oxyCODONE 5 MG Tablet PO ×4 (02:04→19:45)
[2021-10-23] MEDS: tiZANidine HCl 2 MG Tablet 4 MG PO ×2 (02:06→19:46)
[2021-10-23 06:06] VITALS: BP 119/74; PULSE 63
[2021-10-23] MEDS: Enoxaparin 40 MG/0.4 ML Syringe SC (06:08)
[2021-10-23] MEDS: Levothyroxine 137 MCG Tablet 274 MCG PO (06:09)
[2021-10-23] MEDS: amLODIPine 10 MG Tablet PO (06:09)
[2021-10-23] MEDS: Bisoprolol Fumarate 5 MG Tablet 10 MG PO (06:10)
[2021-10-23] MEDS: hydroCHLOROthiazide 6.25mg TAB 12.5 MG PO (06:10)
[2021-10-23] MEDS: Acetaminophen 500 MG Tablet 1000 MG PO ×3 (06:11→19:45)
[2021-10-23] MEDS: Omega-3 Acid Ethyl Esters 1 GM Capsule 2 GM PO (06:11)
[2021-10-23] MEDS: Senna/Docusate Sodium 1 Tablet 2 TABLET PO ×2 (06:11→16:49)
[2021-10-23] MEDS: Pantoprazole Sodium 20 MG Tablet PO (06:11)
[2021-10-23] MEDS: Potassium Chloride Oral Tablet 20 MEQ PO (08:39)
[2021-10-23 15:19] VITALS: BP 130/71; PULSE 70; RESP 16; TEMP 36.6; O2SAT 97
[2021-10-24] MEDS: Omega-3 Acid Ethyl Esters 1 GM Capsule 2 GM PO (04:45)
[2021-10-24] MEDS: Senna/Docusate Sodium 1 Tablet 2 TABLET PO ×2 (04:46→17:44)
[2021-10-24] MEDS: oxyCODONE 5 MG Tablet PO ×4 (04:46→20:02)
[2021-10-24] MEDS: amLODIPine 10 MG Tablet PO (04:46)
[2021-10-24] MEDS: Acetaminophen 500 MG Tablet 1000 MG PO ×3 (04:47→20:01)
[2021-10-24] MEDS: Pantoprazole Sodium 20 MG Tablet PO (04:47)
[2021-10-24] MEDS: Levothyroxine 137 MCG Tablet PO (04:47)
[2021-10-24] MEDS: hydroCHLOROthiazide 6.25mg TAB 12.5 MG PO (04:47)
[2021-10-24] MEDS: tiZANidine HCl 2 MG Tablet 4 MG PO ×2 (04:48→20:01)
[2021-10-24] MEDS: Bisoprolol Fumarate 5 MG Tablet 10 MG PO (04:48)
[2021-10-24] MEDS: Enoxaparin 40 MG/0.4 ML Syringe SC (04:49)
[2021-10-24 04:53] VITALS: BP 126/58; PULSE 61
[2021-10-24] MEDS: Potassium Chloride Oral Tablet 20 MEQ PO (08:47)
[2021-10-24 15:50] VITALS: BP 123/66; PULSE 63; RESP 18; TEMP 36.8; O2SAT 95
[2021-10-24 20:00] VITALS: PULSE 71; RESP 16; O2SAT 98
[2021-10-25] MEDS: oxyCODONE 5 MG Tablet PO ×4 (04:00→20:10)
[2021-10-25] MEDS: Senna/Docusate Sodium 1 Tablet 2 TABLET PO ×2 (05:29→17:27)
[2021-10-25] MEDS: hydroCHLOROthiazide 12.5mg 12.5 MG PO (05:29)
[2021-10-25] MEDS: Pantoprazole Sodium 20 MG Tablet PO (05:30)
[2021-10-25] MEDS: Acetaminophen 500 MG Tablet 1000 MG PO ×3 (05:30→20:11)
[2021-10-25] MEDS: Levothyroxine 137 MCG Tablet 274 MCG PO (05:30)
[2021-10-25] MEDS: amLODIPine 10 MG Tablet PO (05:30)
[2021-10-25] MEDS: Bisoprolol Fumarate 5 MG Tablet 10 MG PO (05:30)
[2021-10-25] MEDS: Omega-3 Acid Ethyl Esters 1 GM Capsule 2 GM PO (05:30)
[2021-10-25] MEDS: Enoxaparin 40 MG/0.4 ML Syringe SC (05:30)
--- NOTE | 2021-10-25 07:01 | NURSING ---
Spouse on unit requesting to shower patient stating therapy said its ok, therapy contacted via phone per Franny ok for spouse to shower patient
[2021-10-25] MEDS: Potassium Chloride Oral Tablet 20 MEQ PO (08:04)
--- NOTE | 2021-10-25 09:44 | CASEMGMT ---
Social Work Brief interview for mental status (BIMS) and resident mood interview (PHQ-9) completed on this day. Cuong LU, DINORAHS
--- NOTE | 2021-10-25 09:58 | CASEMGMT ---
Social Work Met with patient in room to explore discharge planning further as patient has an insurance update due on 10/28/2021. Patient reports plan to return to home with spouse. Patient reports to not feel ready to go home yet due to weight bearing status and just not able to get around well yet. Patient reports to not feel safe with current level of functioning on returning to home. Team is recommending for patient to continue with care and treatment. Patient aware that there is not guarantee of continued stay approval. Patient thanked this social services manager. Social Work to continue to follow as needed. Cuong Vann MSW, GRANT
[2021-10-25 10:00] VITALS: PULSE 68; RESP 14; O2SAT 98
[2021-10-25] MEDS: traMADol 50 MG Tablet PO ×2 (10:04→17:27)
[2021-10-25 16:00] VITALS: BP 133/75; PULSE 65; RESP 16; TEMP 36.3; O2SAT 95
[2021-10-25] MEDS: tiZANidine HCl 2 MG Tablet 4 MG PO (20:11)
[2021-10-26] MEDS: oxyCODONE 5 MG Tablet PO ×3 (04:29→20:25)
[2021-10-26] MEDS: tiZANidine HCl 2 MG Tablet 4 MG PO ×3 (04:31→21:39)
[2021-10-26] MEDS: Omega-3 Acid Ethyl Esters 1 GM Capsule 2 GM PO (04:31)
[2021-10-26] MEDS: Bisoprolol Fumarate 5 MG Tablet 10 MG PO (04:32)
[2021-10-26] MEDS: Senna/Docusate Sodium 1 Tablet 2 TABLET PO (04:32)
[2021-10-26] MEDS: Acetaminophen 500 MG Tablet 1000 MG PO ×3 (04:32→20:26)
[2021-10-26] MEDS: Enoxaparin 40 MG/0.4 ML Syringe SC (04:32)
[2021-10-26] MEDS: Levothyroxine 137 MCG Tablet PO (04:32)
[2021-10-26] MEDS: hydroCHLOROthiazide 12.5mg 12.5 MG PO (04:33)
[2021-10-26] MEDS: Pantoprazole Sodium 20 MG Tablet PO (04:33)
[2021-10-26] MEDS: amLODIPine 10 MG Tablet PO (04:33)
[2021-10-26 04:40] VITALS: BP 111/72; PULSE 66; RESP 16
[2021-10-26] MEDS: Potassium Chloride Oral Tablet 20 MEQ PO (08:28)
--- NOTE | 2021-10-26 13:02 | CASEMGMT ---
Social Work Plan of Care meeting held. Patient present as well as patient spouse, Sepideh and daughter. Team recommending for patient to continue with further care and treatment on the Transitional Care Unit. This clinical social worker communicating that next insurance update is due on 10/28/2021 with no guarantee of continued stay approval, patient voiced understanding. Patient plans to discharge to home with spouse, at time of discharge. Team recommending for patient to continued with care and treatment for another week. Physical therapy is recommending for patient to have outpatient physical therapy at time of discharge. Patient reports that [facility] would be facility of choice for outpatient therapy. Patient reports to have all needed DME, including a walker already set up in the home. Will continue to follow. Cuong LU, GRANT
[2021-10-26 14:19] VITALS: BP 138/63; PULSE 58; RESP 18; TEMP 35.9; O2SAT 95
[2021-10-26 22:00] VITALS: PULSE 66; RESP 16; O2SAT 95
[2021-10-27] MEDS: oxyCODONE 5 MG Tablet PO ×6 (00:27→20:41)
[2021-10-27] MEDS: Senna/Docusate Sodium 1 Tablet 2 TABLET PO (04:31)
[2021-10-27] MEDS: Acetaminophen 500 MG Tablet 1000 MG PO ×3 (04:31→20:42)
[2021-10-27] MEDS: Enoxaparin 40 MG/0.4 ML Syringe SC (04:31)
[2021-10-27] MEDS: Omega-3 Acid Ethyl Esters 1 GM Capsule 2 GM PO (04:31)
[2021-10-27] MEDS: Levothyroxine 137 MCG Tablet PO (04:32)
[2021-10-27] MEDS: hydroCHLOROthiazide 12.5mg 12.5 MG PO (04:32)
[2021-10-27] MEDS: Bisoprolol Fumarate 5 MG Tablet 10 MG PO (04:32)
[2021-10-27] MEDS: Pantoprazole Sodium 20 MG Tablet PO (04:32)
[2021-10-27] MEDS: amLODIPine 10 MG Tablet PO (04:32)
[2021-10-27 06:24] LABS: Anion Gap 5 (5-15); BUN 11 mg/dL (7-18); BUN/Creat Ratio 12.3 RATIO (10-20); Calcium,Total 8.5 mg/dL (8.5-10.1); Chloride 102 mmol/L (98-107); EST Glomerular Filtration Rate 91 mL/min (>60); Est Glom Filt Rate - Afr Amer 111 mL/min (>60); Estimated Creatinine Clearance 83.39 ml/min; Glucose 118 mg/dL (74-106); Potassium 3.7 mmol/L (3.5-5.1); Sodium Level 138 mmol/L (136-145)
[2021-10-27 06:36] LABS: Absolute Lymphocyte Count 1.38 X10^3/uL (0.83-4.51); Basophil# 0.04 X10^3/uL; Basophil% 0.5 % (0-1); Eosinophil# 0.31 X10^3/uL; Eosinophils% 4.1 % (0-5); Hematocrit 29.5 % (40-54); Hemoglobin 9.9 g/dL (13.0-16.5); Lymphocyte # 1.38 X10^3/ul (0.83-4.51); Lymphocyte % 18.3 % (19-41); Mean Corp Hgb Conc 33.6 g/dL (32-36); Mean Corpuscular Hgb 32.9 pg (27.0-32.0); Mean Platelet Vol. 10.5 fl (6.2-12.0); Monocyte# 0.64 X10^3/uL; Monocyte% 8.5 % (0-10); NRBC Flagged by Analyzer 0.3 % (0-5); Neutrophil # 4.96 X10^3/uL (2.7-7.7); Neutrophil % 65.6 % (47-70); Platelet Count 210 K/mm3 (150-450); RBC Distribution Width CV 14.8 % (11.6-14.6); RBC Distribution Width SD 51.7 fl (35.1-43.9); Red Blood Count 3.01 M/mm3 (4.6-6.2); White Blood Count 7.6 K/mm3 (4.4-11.0)
[2021-10-27] MEDS: tiZANidine HCl 2 MG Tablet 4 MG PO ×2 (08:41→20:40)
[2021-10-27] MEDS: Potassium Chloride Oral Tablet 20 MEQ PO (08:42)
[2021-10-27 10:00] VITALS: PULSE 59; RESP 16; O2SAT 95
[2021-10-27] MEDS: Tuberculin,Purif.prot.deriv. 50 TU/ML Vial 0.1 ML ID (10:52)
[2021-10-27 16:00] VITALS: BP 124/74; PULSE 66; RESP 16; TEMP 36.3; O2SAT 95
[2021-10-28] MEDS: oxyCODONE 5 MG Tablet PO ×4 (03:10→20:09)
[2021-10-28] MEDS: Bisoprolol Fumarate 5 MG Tablet 10 MG PO (06:08)
[2021-10-28] MEDS: Omega-3 Acid Ethyl Esters 1 GM Capsule 2 GM PO (06:08)
[2021-10-28] MEDS: Enoxaparin 40 MG/0.4 ML Syringe SC (06:08)
[2021-10-28] MEDS: Acetaminophen 500 MG Tablet 1000 MG PO ×2 (06:09→20:10)
[2021-10-28] MEDS: hydroCHLOROthiazide 12.5mg 12.5 MG PO (06:09)
[2021-10-28] MEDS: traMADol 50 MG Tablet PO ×2 (06:09→12:05)
[2021-10-28] MEDS: amLODIPine 10 MG Tablet PO (06:09)
[2021-10-28] MEDS: Levothyroxine 137 MCG Tablet PO (06:09)
[2021-10-28] MEDS: Pantoprazole Sodium 20 MG Tablet PO (06:10)
[2021-10-28] MEDS: Potassium Chloride Oral Tablet 20 MEQ PO (08:13)
[2021-10-28] MEDS: tiZANidine HCl 2 MG Tablet 4 MG PO ×2 (12:05→20:10)
--- NOTE | 2021-10-28 12:27 | CASEMGMT ---
Social Work SW presented to pt's room. Introduced self and role. Explained insurance update is today and inquiring about DC tomorrow. Pt agreeable to DC 10/29 home with . Confirmed previously established DC plans for pt to have PT at [facility] and no DME needs. Pt confirmed. to transport. Faxed referral to [facility]. Plan: DC home with 10/29, [facility] PT. ALY OrtegaW
[2021-10-28 15:33] VITALS: BP 112/67; PULSE 64; RESP 16; TEMP 35.5; O2SAT 92
[2021-10-28] MEDS: Naproxen 375 MG Tablet PO (17:15)
[2021-10-29] MEDS: Acetaminophen 500 MG Tablet 1000 MG PO (05:20)
[2021-10-29] MEDS: oxyCODONE 5 MG Tablet PO (05:20)
[2021-10-29] MEDS: tiZANidine HCl 2 MG Tablet 4 MG PO (05:20)
[2021-10-29] MEDS: amLODIPine 10 MG Tablet PO (05:22)
[2021-10-29] MEDS: Senna/Docusate Sodium 1 Tablet 2 TABLET PO (05:22)
[2021-10-29] MEDS: hydroCHLOROthiazide 12.5mg 12.5 MG PO (05:22)
[2021-10-29] MEDS: Pantoprazole Sodium 20 MG Tablet PO (05:22)
[2021-10-29] MEDS: Levothyroxine 137 MCG Tablet PO (05:23)
[2021-10-29] MEDS: Omega-3 Acid Ethyl Esters 1 GM Capsule 2 GM PO (05:23)
[2021-10-29] MEDS: Bisoprolol Fumarate 5 MG Tablet 10 MG PO (05:23)
[2021-10-29] MEDS: Enoxaparin 40 MG/0.4 ML Syringe SC (05:23)
[2021-10-29] MEDS: Polyethylene Glycol 3350 17 GM PACKET PO (05:23)
[2021-10-29] MEDS: Naproxen 375 MG Tablet PO (08:25)
[2021-10-29] MEDS: Potassium Chloride Oral Tablet 20 MEQ PO (08:26)
[2021-10-29 08:43] VITALS: PULSE 65; RESP 16; O2SAT 94
--- NOTE | 2021-10-29 09:32 | PCM.DC ---
Discharge Instructions Diet Discharge Diet: No restrictions Activity Discharge Activity: May Not Drive (No diriving until released by PT and orthopedics.), May Shower and Use Walker Weight Bearing Status: Toe touch weight bearing (on the left leg) Lifting Restrictions: no more than 10 lbs Keep extremity elevated above heart level: Left Leg Dressing / Incision Call your doctor if you observe: Fever of 101 or Higher, Inability to urinate, Inability to have a bowel movement, Shortness of breath, Fainting spells, Chest pain, Increased palpitations (irregular heartbeat), Calf discomfort and Uncontrolled pain Suture Line Care: Avoid Pulling/Pushing and Avoid Pinching/Bending Cleanse incision/area with: Soap & Water Follow Up Care Please Follow Up With: ashanti brock MD Test Results: Test results from this visit will be discussed in further detail at your follow-up appointment, if applicable. Pending Tests Upon Discharge: none Discharge Plan Admission Admit Date/Time: 10/19/21 15:45 Primary Reason for Your Visit: Debility due to periprosthetic Left femur fracture. Attending Provider: Collin Bangura Chi Primary Care Provider: Demarco Hernandez Instructions Patient Instructions: Caring for Your Incision, Cellulitis - Causes,Symptoms,Treating Additional Instructions / Restrictions: 1. No driving until you are released by the orthopedic surgeon to drive. 2. Do the exercises given to you by the therapists at least once daily. 3. Get up at least every hour to take a walk to keep from getting stiff and having pain increase. 4. The pain should be decreasing. It has been 12 days since your surgery. I would continue taking the Oxycodone as needed but, within the next week you should be trying to wean the medication down. Naprosyn is not only a pain reliever it is an anti-inflammatory and works best for pain control if you take it regularly. I suggest taking Naprosyn 375 mg twice daily with food for at least the next 1 to 2 weeks. Naprosyn can cause irritation of the stomach lining so if you have nausea or pain in the upper abdomen stop the Naprosyn and continue with Percocet for pain and Tizanidine for muscl relaxation. 5. I have given you 2 pieces of literature on the signs of a wound infection and how to take care of a wound. Please read them.......the last thing you want is an infection in the recent incision that wound spread to the joint and necessitate removal of the prosthesis. Keep your legs elevated to decrease the swelling in your legs. Swelling causes the skin to dry out and crack and this lets bacteria in and this can cause cellulitis. Keep your legs moisturized to prevent the cracking in the skin. I would suggest using either Cetaphil or Eucerin Intensive Repair to moisturize your legs at bedtime. 6. If you have any questions when you get home please don't hesitate to call me at [phone] or [phone]. Discharge Orders/Prescriptions Prescriptions: New acetaminophen 500 mg Tablet 1,000 mg PO Q8H PRN (Reason: Pain 1-10 Or Fever) Qty: 0 0RF naproxen 375 mg Tablet 375 mg PO BIDCM Qty: 60 0RF Rx Instructions: Take with food tizanidine 2 mg Tablet 4 mg PO Q8H PRN PRN (Reason: Muscle Spasm) Qty: 30 0RF oxycodone-acetaminophen [Endocet] 5-325 mg tablet See Rx Instructions .ROUTE .COMPLEX PRN (Reason: pain) 7 Days Qty: 40 0RF Rx Instructions: take 1 tab for pain 3-5 and 2 tabs for pain >5. apixaban 2.5 mg tablet 2.5 mg PO BID 9 Days Qty: 18 0RF Continued levothyroxine 137 mcg tablet 137 mcg PO .[facility] Label Comments: take 1 tablet by mouth every day except Sunday and Sunday. Take 2 tablets on Sunday and Sunday. Rx Instructions: do not take sunday and sunday levothyroxine 137 mcg tablet 274 mcg PO .[facility] [[email or web address]] Label Comments: take 1 tablet by mouth every day except Sunday and Sunday. Take 2 tablets on Sunday and Sunday. Rx Instructions: sunday and sunday bisoprolol-hydrochlorothiazide 5-6.25 mg tablet 2 tab PO DAILY Label Comments: TAKE 2 TABLETS BY MOUTH EVERY DAY potassium chloride 20 mEq tablet,ER particles/crystals 1 tab PO DAILY Label Comments: Take 1 tablet by mouth once daily. amlodipine 10 mg tablet 1 tab PO DAILY Label Comments: TAKE 1 TABLET BY MOUTH EVERY DAY omeprazole 20 mg Capsule,Delayed Release(Dr/Ec) 20 mg PO DAILY omega-3 fatty acids Capsule 2,000 mg PO DAILY Discontinued polyethylene glycol 3350 [Miralax] 17 gram Powder In Packet 17 g PO DAILY PRN (Reason: Constipation) oxycodone [OxyIR] 5 mg Capsule 5 mg PO Q6H PRN (Reason: Pain (Scale Score 6-10)) enoxaparin 40 mg/0.4 mL Syringe 40 mg SUBCUT DAILY senna-docusate sodium Tablet 1 tab PO BID No Action hydrochlorothiazide 12.5 mg Capsule 12.5 mg PO DAILY Referrals / Follow Up: Demarco Hernandez MD [Primary Care Provider] - Disposition Disposition (needs filled in before D/C Order can be placed): Home, Self Care
[2021-10-29 10:31] VITALS: BP 128/62; PULSE 65; RESP 18; TEMP 36.4; O2SAT 94
--- NOTE | 2021-10-29 10:32 | PCM.HP.STD ---
HPI - General General Date of Admission: 10/19/21 Date of Service: 10/29/21 Chief Complaint: Generalized weakness/debility due to fall resulting in a left knee periprosthetic fracture of the femur with subsequent ORIF at [facility]. HPI Narrative GUERRERO PLATA, is a 60 YO male with a M who presents [facility] Medical History (Updated 10/29/21 @ 10:[address] Ronda Stroud, DO) Hypertension Home Medications amlodipine 10 mg tablet 1 tab PO DAILY BP 10/15/21 [History Last Taken Unknown] bisoprolol 5 mg-hydrochlorothiazide 6.25 mg tablet 2 tab PO DAILY BP 10/15/21 [History Last Taken Unknown] levothyroxine 137 mcg tablet 137 mcg PO .MOWETHFRSA thyroid 10/15/21 [History Last Taken Unknown] levothyroxine 137 mcg tablet 274 mcg PO .TUSU thyroid 10/15/21 [History Last Taken Unknown] potassium chloride 20 mEq tablet,extended release(part/cryst) 1 tab PO DAILY supplement 10/15/21 [History Last Taken Unknown] hydrochlorothiazide 12.5 mg capsule 12.5 mg PO DAILY BP/water pill 10/19/21 [History Last Taken Unknown] omega-3 fatty acids 2,000 mg PO DAILY supplement 10/19/21 [History Last Taken Unknown] omeprazole 20 mg capsule,delayed release 20 mg PO DAILY acid reflux 10/19/21 [History Last Taken Unknown] acetaminophen 500 mg tablet 1,000 mg PO Q8H PRN Pain 1-10 Or Fever #0 tabs 10/29/21 [Rx Last Taken Unknown] apixaban 2.5 mg tablet 2.5 mg PO BID 9 days #18 tab-caps 10/29/21 [Rx Last Taken Unknown] naproxen 375 mg tablet 375 mg PO BIDCM #60 tabs 10/29/21 [Rx Last Taken Unknown] oxycodone-acetaminophen 5 mg-325 mg tablet (Endocet) See Rx Instructions .Route .COMPLEX PRN pain 7 days #40 tabs 10/29/21 [Rx Last Taken Unknown] tizanidine 2 mg tablet 4 mg PO Q8H PRN PRN Muscle Spasm #30 tabs 10/29/21 [Rx Last Taken Unknown] Allergy/AdvReac Type Severity Reaction Status Date / Time codeine Allergy Itching Verified 10/15/21 06:01 Family History (Updated 10/19/21 @ 19:[address] Collin Bangura MD) Mother Cancer CAD (coronary artery disease) Diabetes Father Cancer Brother Prostate cancer Surgical History (Updated 10/29/21 @ 10:[address] Ronda Stroud DO) History of cholecystectomy History of knee replacement procedure of left knee History of thyroidectomy, subtotal History of umbilical hernia repair Social History (Updated 10/19/21 @ 19:[address] Collin Bangura MD) household members: spouse Smoking Status: Former smoker Smokeless tobacco user: snuff alcohol intake: current alcohol intake frequency: 0-2 drinks per day substance use type: does not use Vital Signs Vital Signs Vital Signs: 10/28/21 15:33 10/29/21 08:43 Temperature 95.9 F L Temperature Source Temporal Pulse Rate 64 65 Pulse Rhythm Regular Pulse Strength Normal (2+) Respiratory Rate 16 16 Respiratory Effort Normal Non-Labored Respiratory Depth Normal Respiratory Pattern Normal Blood Pressure 112/67 Blood Pressure Mean 82 Blood Pressure Source Monitor Blood Pressure Position Sitting Blood Pressure Location Right Arm Pulse Ox 92 94 Oxygen Delivery Method Room Air Room Air Weight Weight: 230 lb 9 oz Body Mass Index (BMI) 21.6 Physical Exam Const alert, oriented x3, no apparent distress and well nourished Constitutional Narrative: Sitting in the recliner at the bedside and appears in no distress. General Appearance: cooperative, comfortable and well kempt HEENT normocephalic, head/scalp atraumatic and moist oral mucous membranes Eyes PERRL, EOMs intact bilaterally, conjunctivae normal and no scleral icterus General Eye: normal appearance of both eyes Neck supple General: trachea midline Resp normal respiratory effort, normal air movement, no use of accessory muscles and clear to auscultation bilaterally Effort and Inspection: able to speak in complete sentences Cardio regular rate, regular rhythm, S1 normal heart sound, S2 normal heart sound, no rub and no gallops Cardio Narrative: He has a systolic murmur heard best at the lower left sternal border without radiation. It is 2/6. He is aware of this. He had RF when he was a child. Dr. Hernandez is aware. GI normal to inspection, nondistended, normoactive bowel sounds, soft to palpation and non-tender GI Narrative: No guarding with palpation Extremity no calf tenderness Extremity Narrative: He has swelling of the left knee and mild swelling of the left ankle also. He tells me that the swelling has been progressively going down. Skin Skin Narrative: I examined all the incisions and they are all intact with messi present. There is a little redness around a few of the messi and I feel this is just reaction and not infection. There is no discharge and no bleeding. I educated him on what to look for that would denote he has an infection. Ecchymosis of the left thigh and knee is resolving. General Skin Exam: no breakdown Neuro oriented x3 and CN's II-XII intact bilaterally Psych mental status grossly normal, thought process normal, cooperative, affect normal, speech normal, activity/motor behavior normal, denies homicidal ideation and denies suicidal ideation Results Medical Records Data Medical Nutrition Assessment Dietitian: Malnutrition Criteria Met Start: 10/26/21 14:36 Freq: Status: Active Protocol: Document 10/26/21 14:36 [facility] (Rec: 10/26/21 14:36 [facility] [id number]) Nutrition Malnutrition Evidence of Malnutrition Exists Yes Malnutrition (severe): Acute Illness/Injury Evidenced By Suboptimal Energy Intake ( Severe),Weight Loss (Severe) Clinical Problem Acute Disease or Injury Related Malnutrition Etiology related to loss of appetite d/ t medications per res making it difficulty to consume adequate nutrition to meet est nutritional needs Signs/Symptoms as evidenced by <= 50% po intake and 4.8% wt loss x 5 days - now agreeable to ONS w/ medpass. 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 No DME needed. (2) Closed left femoral fracture: PLAN: Periprosthetic fracture due to a fall. (3) History of open reduction and internal fixation (ORIF) procedure: PLAN: At [facility] on 10/16/21. (4) Acute blood loss anemia: PLAN: HGBA is stable prior to DC at 9.9 (5) Hyperglycemia: PLAN: FBS's have ranged from 118 - 182. No HGBA1C was ordered but, would consider obtaining a HGBA1C (6) Obesity: PLAN: Recommend wt loss, michelle because the BS is elevated. (7) Gastroesophageal reflux disease: PLAN: Continue omeprazole (8) Hypokalemia: PLAN: More likely than not secondary to hydrochlorothiazide. Hypokalemia resolved with the addition of a potassium supplement to his drug regimen. (9) Hypothyroidism:
--- NOTE | 2021-10-29 10:49 | DS.PCM_ITS ---
Providers Date of Admission: 10/19/21 Date of Discharge: 10/29/21 Primary Care Physician: Dr. Demarco Hernandez MD Reason For Visit: LEFT FEMUR FRACTURE Diagnosis Discharge Diagnosis (1) Debility: Status: Acute Code(s): R53.81 - Other malaise Plan: DC home with outpatient physical therapy at [facility]. No DME needed. (2) Closed left femoral fracture: Status: Acute Code(s): S72.92XA - Unspecified fracture of left femur, initial encounter for closed fracture Plan: Periprosthetic fracture due to a fall. (3) History of open reduction and internal fixation (ORIF) procedure: Status: Acute Code(s): Z98.890 - Other specified postprocedural states Plan: At [facility] on 10/16/21. (4) Acute blood loss anemia: Status: Acute Code(s): D62 - Acute posthemorrhagic anemia Plan: HGBA is stable prior to DC at 9.9 (5) Hyperglycemia: Status: Acute Code(s): R73.9 - Hyperglycemia, unspecified Plan: FBS's have ranged from 118 - 131. No HGBA1C was ordered but, would consider obtaining a HGBA1C as an OP post DC unless one has been recently done. (6) Obesity: Status: Acute Code(s): E66.9 - Obesity, unspecified Plan: Recommend wt loss, michelle because the BS is elevated. (7) Gastroesophageal reflux disease: Status: Acute Code(s): K21.9 - Gastro-esophageal reflux disease without esophagitis Plan: Continue omeprazole (8) Hypokalemia: Status: Resolved Code(s): E87.6 - Hypokalemia Plan: More likely than not secondary to hydrochlorothiazide. Hypokalemia resolved with the addition of a potassium supplement to his drug regimen. (9) Hypothyroidism: Status: Chronic Code(s): E03.9 - Hypothyroidism, unspecified (10) Malnutrition: Status: Acute Code(s): E46 - Unspecified protein-calorie malnutrition Plan 1. Discharge home. 2. Outpatient physical therapy at [facility]. 3. No DME needs Medications at Discharge Home Medications amlodipine 10 mg tablet 1 tab PO DAILY BP 10/15/21 bisoprolol 5 mg-hydrochlorothiazide 6.25 mg tablet 2 tab PO DAILY BP 10/15/21 levothyroxine 137 mcg tablet 137 mcg PO .STARR thyroid 10/15/21 levothyroxine 137 mcg tablet 274 mcg PO .SEBASTIANSU thyroid 10/15/21 potassium chloride 20 mEq tablet,extended release(part/cryst) 1 tab PO DAILY supplement 10/15/21 hydrochlorothiazide 12.5 mg capsule 12.5 mg PO DAILY BP/water pill 10/19/21 omega-3 fatty acids 2,000 mg PO DAILY supplement 10/19/21 omeprazole 20 mg capsule,delayed release 20 mg PO DAILY acid reflux 10/19/21 acetaminophen 500 mg tablet 1,000 mg PO Q8H PRN Pain 1-10 Or Fever #0 tabs 10/29/21 apixaban 2.5 mg tablet 2.5 mg PO BID 9 days #18 tab-caps 10/29/21 naproxen 375 mg tablet 375 mg PO BIDCM #60 tabs 10/29/21 oxycodone-acetaminophen 5 mg-325 mg tablet (Endocet) See Rx Instructions .Route .COMPLEX PRN pain 7 days #40 tabs 10/29/21 tizanidine 2 mg tablet 4 mg PO Q8H PRN PRN Muscle Spasm #30 tabs 10/29/21 Hospital Course Operations - (ORIF left distal femur fracture on 10/16/2021 at [facility].) Procedures None Summary of Care Provided Minutes Spent on Discharge: 40 Hospital Course: Suresh Rosenberg is a 60-year-old male who presented to the [facility] emergency department on 10/15/2021 after a fall and complaining of left knee pain. X-ray showed a left periprosthetic distal femur fracture and he was transferred to [facility] and taken to surgery on 10/16/2021 for a left retrograde femoral nail. He was placed on Lovenox for DVT prophylaxis. He was made toe touch wt bearing. He was transferred to the TCU at [facility] on 10/19/21 for PT/OT to strengthen and instruct in proper use of the WW to maintain toe-touch weightbearing and accomplish safe ambulation. He had acute blood loss anemia related to the orthopedic surgery and the HGB at presentation to TCU was 8.6. At the time of discharge it had risen to 9.9. He was afebrile and had a normal white blood cell count throughout his admission to TCU. Chemistries were unremarkable with the exception of an elevated fasting glucose which ranged from 118-131. Suresh was seen by the dietitian during his hospital stay and on 10/26/2021 mild malnutrition criteria were met. Malnutrition was diagnosed due to evidence of less than or equal to 50% p.o. intake and a 4.8% weight loss over 5 days. He was provided with nutritional supplements while in the hospital and I suspect his intake will improve post DC. HE progressed well in therapy and prior to discharge was able to stand walk 10 feet turn around and go back and sit in 19.61 seconds with a wheeled walker while maintaining toe-touch weightbearing on the left lower extremity. He did 8 stands in 30 seconds prior to discharge and was able to ascend/descend 5 steps using 1 handrail with standby assist to safely navigate his steps at home. He was able to ambulate 100 feet with a front wheeled walker while maintaining toe- touch weightbearing at the time of discharge. He was discharged on 10/29/21 and will follow up with orthopedics and with his primary care physician, Dr. Demarco Hernandez. At the time of discharge he was transitioned from Lovenox to Eliquis 2.5 mg twice daily for DVT prophylaxis to complete 21 days of treatment from the date of surgery. VS at the time of DC were blood pressure 128/62, pulse 65, respiratory rate 18, temp 97.6 and he was 94% saturated on room air. Physical Exam Const alert, oriented x3, no apparent distress and well nourished Constitutional Narrative: Sitting in the recliner at the bedside and appears in no distress. General Appearance: cooperative, comfortable and well kempt HEENT normocephalic, head/scalp atraumatic and moist oral mucous membranes Eyes PERRL, EOMs intact bilaterally, conjunctivae normal and no scleral icterus General Eye: normal appearance of both eyes Neck supple General: trachea midline Resp normal respiratory effort, normal air movement, no use of accessory muscles and clear to auscultation bilaterally Effort and Inspection: able to speak in complete sentences Cardio regular rate, regular rhythm, S1 normal heart sound, S2 normal heart sound, no rub and no gallops Cardio Narrative: He has a systolic murmur heard best at the lower left sternal border without radiation. It is 2/6. He is aware of this. He had RF when he was a child. Dr. Hernandez is aware. GI normal to inspection, nondistended, normoactive bowel sounds, soft to palpation and non-tender GI Narrative: No guarding with palpation Extremity no calf tenderness Extremity Narrative: He has swelling of the left knee and mild swelling of the left ankle also. He tells me that the swelling has been progressively going down. Skin Skin Narrative: I examined all the incisions and they are all intact with messi present. There is a little redness around a few of the messi and I feel this is just reaction and not infection. There is no discharge and no bleeding. I educated him on what to look for that would denote he has an infection. Ecchymosis of the left thigh and knee is resolving. General Skin Exam: no breakdown Neuro oriented x3 and CN's II-XII intact bilaterally Psych mental status grossly normal, thought process normal, cooperative, affect no rmal, speech normal, activity/motor behavior normal, denies homicidal ideation and denies suicidal ideation Medical Records Data Medical Nutrition Assessment Dietitian: Malnutrition Criteria Met Start: 10/26/21 14:36 Freq: Status: Active Protocol: Document 10/26/21 14:36 [facility] (Rec: 10/26/21 14:36 [facility] [id number]) Nutrition Malnutrition Evidence of Malnutrition Exists Yes Malnutrition (severe): Acute Illness/Injury Evidenced By Suboptimal Energy Intake ( Severe),Weight Loss (Severe) Clinical Problem Acute Disease or Injury Related Malnutrition Etiology related to loss of appetite d/ t medications per res making it difficulty to consume adequate nutrition to meet est nutritional needs Signs/Symptoms as evidenced by <= 50% po intake and 4.8% wt loss x 5 days - now agreeable to ONS w/ medpass. 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 Weight Weight: 230 lb 9 oz Body Mass Index (BMI) 21.6 ABG / Lab / Microbiology Data Result Diagrams: 10/27/21 05:25 10/27/21 05:25 Microbiology: Microbiology 10/26/21 11:00 Nasal Secretion SARS-CoV-2 Antigen (Rapid) - Final 10/20/21 14:11 Nasal Secretion SARS-CoV-2 Antigen (Rapid) - Final D/C Instructions Discharge Diet: No restrictions Weight Bearing Status: Toe touch weight bearing (on the left leg) Keep extremity elevated above heart level: Left Leg Call your doctor if you observe: Fever of 101 or Higher, Inability to urinate, Inability to have a bowel movement, Shortness of breath, Fainting spells, Chest pain, Increased palpitations (irregular heartbeat), Calf discomfort and Uncontrolled pain Suture Line Care: Avoid Pulling/Pushing and Avoid Pinching/Bending Cleanse incision/area with: Soap & Water Pending Tests Upon Discharge: none Please Follow Up With: ashanti brock MD Meaningful Use Info Meaningful Use Diagnoses (Choose all that apply): None applicable Discharge Plan Admission Admit Date/Time: 10/19/21 15:45 Primary Reason for Your Visit: Debility due to periprosthetic Left femur fracture. Attending Provider: Collin Bangura Chi Primary Care Provider: Demarco Hernandez Instructions Patient Instructions: Caring for Your Incision, Cellulitis - Causes,Symptoms,Treating Additional Instructions / Restrictions: 1. No driving until you are released by the orthopedic surgeon to drive. 2. Do the exercises given to you by the therapists at least once daily. 3. Get up at least every hour to take a walk to keep from getting stiff and having pain increase. 4. The pain should be decreasing. It has been 12 days since your surgery. I would continue taking the Oxycodone as needed but, within the next week you anjel uld be trying to wean the medication down. Naprosyn is not only a pain reliever it is an anti-inflammatory and works best for pain control if you take it regularly. I suggest taking Naprosyn 375 mg twice daily with food for at least the next 1 to 2 weeks. Naprosyn can cause irritation of the stomach lining so if you have nausea or pain in the upper abdomen stop the Naprosyn and continue with Percocet for pain and Tizanidine for muscl relaxation. 5. I have given you 2 pieces of literature on the signs of a wound infection and how to take care of a wound. Please read them.......the last thing you want is an infection in the recent incision that wound spread to the joint and necessitate removal of the prosthesis. Keep your legs elevated to decrease the swelling in your legs. Swelling causes the skin to dry out and crack and this lets bacteria in and this can cause cellulitis. Keep your legs moisturized to prevent the cracking in the skin. I would suggest using either Cetaphil or Eucerin Intensive Repair to moisturize your legs at bedtime. 6. If you have any questions when you get home please don't hesitate to call me at [phone] or [phone]. Discharge Orders/Prescriptions Prescriptions: New acetaminophen 500 mg Tablet 1,000 mg PO Q8H PRN (Reason: Pain 1-10 Or Fever) Qty: 0 0RF naproxen 375 mg Tablet 375 mg PO BIDCM Qty: 60 0RF Rx Instructions: Take with food tizanidine 2 mg Tablet 4 mg PO Q8H PRN PRN (Reason: Muscle Spasm) Qty: 30 0RF oxycodone-acetaminophen [Endocet] 5-325 mg tablet See Rx Instructions .ROUTE .COMPLEX PRN (Reason: pain) 7 Days Qty: 40 0RF Rx Instructions: take 1 tab for pain 3-5 and 2 tabs for pain >5. apixaban 2.5 mg tablet 2.5 mg PO BID 9 Days Qty: 18 0RF Continued levothyroxine 137 mcg tablet 137 mcg PO .[facility] Label Comments: take 1 tablet by mouth every day except Sunday and Sunday. Take 2 tablets on Sunday and Sunday. Rx Instructions: do not take sunday and sunday levothyroxine 137 mcg tablet 274 mcg PO .[facility] Label Comments: take 1 tablet by mouth every day except Sunday and Sunday. Take 2 tablets on Sunday and Sunday. Rx Instructions: sunday and sunday bisoprolol-hydrochlorothiazide 5-6.25 mg tablet 2 tab PO DAILY Label Comments: TAKE 2 TABLETS BY MOUTH EVERY DAY potassium chloride 20 mEq tablet,ER particles/crystals 1 tab PO DAILY Label Comments: Take 1 tablet by mouth once daily. amlodipine 10 mg tablet 1 tab PO DAILY Label Comments: TAKE 1 TABLET BY MOUTH EVERY DAY omeprazole 20 mg Capsule,Delayed Release(Dr/Ec) 20 mg PO DAILY omega-3 fatty acids Capsule 2,000 mg PO DAILY Discontinued polyethylene glycol 3350 [Miralax] 17 gram Powder In Packet 17 g PO DAILY PRN (Reason: Constipation) oxycodone [OxyIR] 5 mg Capsule 5 mg PO Q6H PRN (Reason: Pain (Scale Score 6-10)) enoxaparin 40 mg/0.4 mL Syringe 40 mg SUBCUT DAILY senna-docusate sodium Tablet 1 tab PO BID No Action hydrochlorothiazide 12.5 mg Capsule 12.5 mg PO DAILY Referrals / Follow Up: Demarco Hernandez MD [Primary Care Provider] - Disposition Disposition (needs filled in before D/C Order can be placed): Home, Self Care Charges/Coding Visit Charges Inpatient E&M: 19941 SNF Disch >30 Min
--- NOTE | 2021-11-01 14:27 | MDS.RN ---
Information for the mds was obtained from review of the clinical record, interview of resident, staff, and direct observation of resident's care.
--- NOTE | 2021-11-10 11:21 | NURSING ---
Orthopaedic Physician Assistant Note: Initial activity assessment completed on paper by interim borough coordinator.
== END 2021-10-29 11:00 | disposition home or self-care (01) | DRG 560 ==
PROVIDERS: Admitting Provider Family Medicine Geriatric Medicine; PCP Family Medicine; Visit Provider Family Medicine Geriatric Medicine
DX: M97.12XD Periprosthetic fracture around internal prosthetic left knee joint, subsequent encounter (principal); D62 Acute posthemorrhagic anemia; E46 Unspecified protein-calorie malnutrition; E87.6 Hypokalemia; I10 Essential (primary) hypertension; E89.0 Postprocedural hypothyroidism; K21.9 Gastro-esophageal reflux disease without esophagitis; F17.220 Nicotine dependence, chewing tobacco, uncomplicated; W19.XXXD Unspecified fall, subsequent encounter; E78.5 Hyperlipidemia, unspecified; Z79.01 Long term (current) use of anticoagulants; Z79.890 Hormone replacement therapy; Z79.899 Other long term (current) drug therapy; R73.9 Hyperglycemia, unspecified; Z68.35 Body mass index [BMI] 35.0-35.9, adult; Z23 Encounter for immunization
CPT/HCPCS: 0064A; 36415; 80048; 85025; 87811; 90677; 91306; 97110; 97116; 97162; 97166; 97530; 97535; 97802

== ENCOUNTER 2021-12-23 09:00 | Outpatient (RCR) | payer OTHER, SELFPAY ==
--- NOTE | 2021-11-03 10:52 | HP.PTEVAL ---
Patient's Visit Information GUERRERO PLATA is a 60 year old M referred to Physical Therapy by Dr. Demarco Hernandez MD with a diagnosis of L femur fracture and aaron placement end September. Date of Evaluation: 11/03/21 Physical Therapist: Lennox Phillips, LORINT, OCS, CSCS - Visit Plan Frequency: 3x /Week Duration: 2 Months Plan: 3x/week for 6-8 weeks...Pt is TTWB L with wh walker to start today and until doctor f/u... STM for edema to L LE, patellar mobs, knee P/AAROM, AROM and NWB strength to tolerance, progress gait when allowed by doctor. stretch quad and HS ITB. Scar massage. ice as needed. - Subjective TKA 19 yrs ago. doing well. Slipped on grass at end of September 2+ weeks ago. He slipped on wet grass at 4 am and fractured L femur in 5 places. Hurt right away. Yelled for help and got it an hour later. Called squad and shipped to [place]. Surgery the next day for placing a aaron in L femur. Is NWB L until f/u next week. Wh walker ever since. Getting around Ok with that. Pain is improving and 2/10 this week and just gets stiff at night. Does not keep him up at night. Doing AP as exercises. 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 Off until gets released. Dressing requires a little help at home. Bthroom and shower I. steps over tub with seat. No other hobbies other than work. No regular exercise. 5 steps at home which he does without trouble with crutch. - Pain L femur Pain Intensity (Out of 10): 2 Pain Intensity Range: 2 - Objective Walks into therapy with wh walker and TTWB on L which is what he says doctor told him, Fair this mod I, Can do NWB mod I also. Trasnfers table and chair are I. Steps with one crutch today TTWB L mod I with rail. L knee strength not tested today in quad but at least 3/5, HS 4-/5. R knee 5/5. AROM L knee -6 ext to 70 flexion and 75 after stretching and PROM. R knee 0-135. quad is tight on L and HS is -25 90/90 test. Incisons are anteriorly on L at knee and up into quad. Redness is around the stich are which were removed yesterday. Edematous tissue anterior and lateral at and above joint line is obvious and tight feeling. ankel AROM is full on L and strength at 4+/5 B. Unable to SLR without 8 degree quad lag. strength at hip flexion L 3, abd 3+, ext 3+. L LE at 4- in hip. - Balance/Special Test Scores Lower Extremity Functional Score: 35 - Goals Goal 1:: ST : 0-110 aROM without pain and SLR without quad lag Goal Time Frame: 2-4 Weeks Goal 2:: LT goals: Ambulate as allowed by doctor without gait deviations or AD community Goal Time Frame: 6-8 Weeks Goal 3:: Steps reciprocally without AD or pain Goal Time Frame: 6-8 Weeks Goal 4:: Pt feel 85% back to activities and plan to consider return to work Goal Time Frame: 6-8 Weeks Goal 5:: I approp HEP to minimize future problems Goal Time Frame: 6-8 Weeks - Rehabilitation Potential Physical Therapy Diagnosis: immobility after L femur fracture adn surgery Rehabilitation Potential: Good - Anticipated Interventions Patient/Client Instruction: Educate patient on: Condition, Plan of Care For the Purpose of:: To decrease pain, To increase ROM, To improve nutrient delivery to tissue, To improve muscle performance and motor function, To increase tolerance to activity/condition/position, To improve ability of physical actions for home/community/work/leisure, To improve gait and locomotor functions, To improve safety Therapeutic Exercise to Include: Strength training, Balance training, Agility training, Postural training, Flexibilty training, Gait and locomotor training, Passive ROM, Active ROM For the Purpose of:: To decrease pain, To increase ROM, To improve muscle performance and motor function, To increase tolerance to activity/condition/position, To improve ability of physical actions for home/community/work/leisure, To improve gait and locomotor functions, To improve health of tissue Manual Therapy Techniques to Include: Scar massage, Mobilization, Soft tissue mobilization For the Purpose of:: To decrease pain, To increase ROM Cryotherapy (ice pack, ice massage): Yes For the Purpose of:: To decrease swelling/inflammation Thank you for the opportunity to evaluate your patient. For Medicare and Medicare HMO plans, please review the plan of care and approve it. It will need to be FAXED BACK to us at [phone] for Medicare purposes. For Medicare only, by signing this I certify the plan of care. Please let me know if there are questions or concerns regarding this plan of care. Physician Signature: Date:
--- NOTE | 2021-12-23 10:02 | HP.PTREVAL ---
Dr. Demarco Hernandez MD, It has been my pleasure to treat GUERRERO PLATA over the last 21 visits for L femur fracture and aaron placement end September. Please see the progress note below for an update on the physical therapy plan of care! Subjective: Not much pain, 3/10 when walking. Not using crutch much at home and feeling pretty good. Wroking with some soreness after work but not bad and sleeping OK. Objective/Function: Walking with some R antalgia/avoidance of WB time but good heel strike and toe off. Steps are reciprocal with one rail without increased pain, slightly weaker descending using L. Overall doing well. 0 ext lag with SLR and 0-115 aROM L knee, 0-120 R. Plan Plan: 2x/week x 4 weeks to progress strength adn ensure gait is worked out . Can work on quad flexibility also. Balance/Gait/Functional tests - Balance/Special Test Scores Lower Extremity Functional Score: 43 Goals Goal 1:: ST : 0-110 aROM without pain and SLR without quad lag Goal Time Frame: 2-4 Weeks Goal Progress: Goal Met Goal 2:: LT goals: Ambulate as allowed by doctor without gait deviations or AD community Goal Time Frame: 6-8 Weeks Goal Progress: Progressing Goal 3:: Steps reciprocally without AD or pain Goal Time Frame: 6-8 Weeks Goal Progress: Goal Met Goal 4:: Pt feel 85% back to activities and plan to consider return to work Goal Time Frame: 6-8 Weeks Goal Progress: Goal Met Goal 5:: I approp HEP to minimize future problems Goal Time Frame: 6-8 Weeks Goal Progress: Progressing Goal 6:: Pt 99% back to normal and without deficits or soreness after work. Goal Time Frame: 2-4 Weeks Goal Progress: NEW GOAL Anticipated Interventions Patient/Client Instruction: Educate patient on: Condition, Plan of Care For the Purpose of:: To decrease pain, To increase ROM, To improve nutrient delivery to tissue, To improve muscle performance and motor function, To increase tolerance to activity/condition/position, To improve ability of physical actions for home/community/work/leisure, To improve gait and locomotor functions, To improve safety Therapeutic Exercise to Include: Strength training, Balance training, Agility training, Postural training, Flexibilty training, Gait and locomotor training, Passive ROM, Active ROM For the Purpose of:: To decrease pain, To increase ROM, To improve muscle performance and motor function, To increase tolerance to activity/condition/position, To improve ability of physical actions for home/community/work/leisure, To improve gait and locomotor functions, To improve health of tissue Manual Therapy Techniques to Include: Scar massage, Mobilization, Soft tissue mobilization For the Purpose of:: To decrease pain, To increase ROM Cryotherapy (ice pack, ice massage): Yes For the Purpose of:: To decrease swelling/inflammation Please do not hesitate to contact me at [phone] by phone or if you have questions or concerns regarding this new plan of care! Sincerely, Lennox Phillips, DPT, OCS, CSCS
--- NOTE | 2022-02-01 07:42 | HP.PTDCNRP_ITS ---
GUERRERO PLATA was seen in my office for initial evaluation on 11/03/21. The following Plan of Care was established for this patient: Initial Frequency: 3x /Week Initial Duration: 2 Months Patient/Client Instruction: Educate patient on: Condition, Plan of Care For the Purpose of:: To decrease pain, To increase ROM, To improve nutrient delivery to tissue, To improve muscle performance and motor function, To increase tolerance to activity/condition/position, To improve ability of physical actions for home/community/work/leisure, To improve gait and locomotor functions, To improve safety Therapeutic Exercise to Include: Strength training, Balance training, Agility training, Postural training, Flexibilty training, Gait and locomotor training, Passive ROM, Active ROM For the Purpose of:: To decrease pain, To increase ROM, To improve muscle performance and motor function, To increase tolerance to activity/condition/position, To improve ability of physical actions for home/community/work/leisure, To improve gait and locomotor functions, To improve health of tissue Manual Therapy Techniques to Include: Scar massage, Mobilization, Soft tissue mobilization For the Purpose of:: To decrease pain, To increase ROM Cryotherapy (ice pack, ice massage): Yes For the Purpose of:: To decrease swelling/inflammation This patient was last seen in our office 12/23/21. Pertinent comments regarding their Physical therapy will appear below: Pt seen 21 visits of POC and was 90% better. He cancelled his last [address] ating he was back to work and doing well. I will discontinue at this time. At this point I will be discontinuing this patient from physical therapy. I would be happy to see this patient again in the future if found appropriate by the physician. Thank you! Lennox Phillips, DPT, OCS, CSCS Balance/Gait/Functional tests - Balance/Special Test Scores Lower Extremity Functional Score: 43
== END 2021-12-23 19:00 | disposition home or self-care (01) ==
LOC: PT 09:00
PROVIDERS: PCP Family Medicine; Referring Provider Internal Medicine; Visit Provider Family Medicine
DX: S72.302D Unspecified fracture of shaft of left femur, subsequent encounter for closed fracture with routine healing (principal); X58.XXXD Exposure to other specified factors, subsequent encounter
CPT/HCPCS: 97016; 97110; 97140; 97161; 97530

== ENCOUNTER 2023-07-24 11:28 | Inpatient (IN) | payer OTHER, SELFPAY ==
[2023-07-24] VITALS (7 sets, daily range): BP systolic 118–169; BP diastolic 69–89; PULSE 46–56; RESP 13–18; TEMP 36.1–36.8; O2SAT 94–99; BMI 35.0; BMI 34.9; BMI 34.8
--- NOTE | 2023-07-24 12:26 | EDS_ITS ---
HPI History of Present Illness Chief Complaint: Neuro S/Sx [facility] Medical History (Updated 07/24/23 @ 16:37 by Tracy Ruff) Anxiety Former smoker Gastroesophageal reflux disease Hypertension Hypothyroidism Myocardial infarct Home Medications amlodipine 10 mg tablet 1 tab PO DAILY BP 10/15/21 [History Last Taken Unknown] bisoprolol 5 mg-hydrochlorothiazide 6.25 mg tablet 2 tab PO DAILY BP 10/15/21 [History Last Taken Unknown] potassium chloride 20 mEq tablet,extended release(part/cryst) 1 tab PO DAILY supplement 10/15/21 [History Last Taken Unknown] omega-3 fatty acids 2,000 mg PO DAILY supplement 10/19/21 [History Last Taken Unknown] omeprazole 20 mg capsule,delayed release 20 mg PO DAILY acid reflux 10/19/21 [History Last Taken Unknown] naproxen 375 mg tablet 375 mg PO BIDCM #60 tabs 10/29/21 [Rx Last Taken Unknown] aspirin 81 mg tablet,delayed release (Adult Aspirin Regimen) 81 mg PO DAILY 07/24/23 [History Last Taken Unknown] atorvastatin 10 mg tablet 10 mg PO DAILY 07/24/23 [History Last Taken Unknown] cyanocobalamin (vitamin B-12) 1,000 mcg capsule 1,000 mcg PO DAILY 07/24/23 [History Last Taken Unknown] levothyroxine 200 mcg tablet 200 mcg PO .COMPLEX disorder of thyroid gland 07/24/23 [History Last Taken Unknown] lisinopril 20 mg tablet 20 mg PO DAILY 07/24/23 [History Last Taken Unknown] trazodone 50 mg tablet 50 mg PO QHS PRN PRN insomnia 07/24/23 [History Last Taken Unknown] Allergy/AdvReac Type Severity Reaction Status Date / Time codeine Allergy Itching Verified 07/24/23 11:35 Family History Mother Cancer CAD (coronary artery disease) Diabetes Father Cancer Brother Prostate cancer Surgical History History of cholecystectomy History of knee replacement procedure of left knee History of thyroidectomy, subtotal History of umbilical hernia repair Social History household members: spouse Smoking Status: Former smoker Smokeless tobacco user: snuff alcohol intake: current alcohol intake frequency: 0-2 drinks per day substance use type: does not use EXAM Physical Exam Const Vital Signs: 07/24/23 11:31 07/24/23 12:35 07/24/23 14:10 Temperature 97 F L Temperature Source Temporal Pulse Rate 54 L 46 L Respiratory Rate 14 17 Respiratory Pattern Blood Pressure 147/78 H 118/69 Blood Pressure Mean 101 85 Pulse Ox 96 96 Oxygen Delivery Method Room Air Room Air Room Air 07/24/23 15:00 07/24/23 15:13 07/24/23 15:14 Temperature 98.2 F Temperature Source Pulse Rate 54 L 48 L Respiratory Rate 18 13 Respiratory Pattern Normal Blood Pressure 129/70 H 143/70 H Blood Pressure Mean 89 94 Pulse Ox 98 98 Oxygen Delivery Method Room Air MDM MDM MDM Narrative Medical decision making narrative: HISTORY OF PRESENT ILLNESS: 62-year-old male presents with dizziness while sitting for 2 weeks. Notes tingling both arms. Notes he felt as if he as going to pass out at work. Notes he is in a fog. Notes symptoms occur at rest. Denies any exertional symptoms. Denies any chest pain or palpitations. Denies any bleeding diathesis. Denies any volume loss such as vomiting or diarrhea. Denies any focal numbness, weakness or loss sensation. Denies any headache. REVIEW OF SYSTEMS: Pertinent positives: Dizziness Pertinent negatives: Headache, facial drooping, slurred speech, focal numbness weakness or loss sensation, chest pain, palpitation, shortness of breath, bleedi ng diathesis PHYSICAL EXAM: Nursing triage notes reviewed, Vital signs reviewed Constitutional: please see mdm HENT: MMM Eyes: Pupils equal round and reactive to light, Extraocular muscles intact Neck: No stridor, no JVD, full neck ROM Lungs: Clear to auscultation, No wheezing or rales. No increased work of breathing, no conversational dyspnea, no accessory muscle use, no nasal flaring. No respiratory distress noted Heart: Regular rate and rhythm, No murmurs, No rubs and No gallops, 2+ distal pulses (radial, femoral, posterior tibial) in all extremities Abdomen: Soft, there is no tenderness, rigidity, rebound or guarding, no obvious peritoneal signs, no palpable pulsatile abdominal masses, no auscultated abdominal bruit : No CVAT Extremities: No edema Neuro: Alert and oriented x3, neuro exam at baseline, cranial nerves II through XII are intact. No pain with extraocular muscle movement. There is negative test of skew. 5 of 5 strength in upper and lower extremities in flexion extension. Intact sensation to light touch in upper and lower extremity dermatomes. No truncal or extremity ataxia. No dysdiadochokinesia. Normal gait. 2+ reflexes in upper and lower extremities. No meningeal signs. Negative Babinski. NIH of 0. Skin: No rash or lesions noted MEDICAL DECISION MAKING: Chief Complaint: Dizziness External records reviewed: No recent ED visits or hospitalizations. No recent advanced imaging of the brain Factors affecting care: Obesity, hypertension, hypothyroidism, GERD Social determinants of health: none History obtained from others: Significant other Consults: Internal medicine (Dr. Wills), cardiology (Dr. Driscoll) MDM Narrative: The patient was hemodynamically stable, afebrile and nontoxic-appearing. Neuroexam was nonfocal. NIH of 0. No clinical signs of posterior circulation CVA I considered the following differential diagnosis: Dehydration, anemia, electrolyte disturbance, arrhythmia, ACS, ICH, posterior circulation CVA I did obtain a CT scan of the head given reported feeling off and dizziness rule out mass or bleed. I also obtained a broad lab and imaging workup to rule out endorgan hypoperfusion, ACS, anemia, septic electrolyte disturbances ALL IMAGES (IF OBTAINED) HAVE BEEN PERSONALLY REVIEWED AND INTERPRETED BY MYSELF. EKG with sinus bradycardia, normal MD interval, normal axis, no STEMI, no eviden ce of complete heart block or other arrhythmia CBC without leukocytosis, severe anemia, no thrombocytopenia. I have personally reviewed the patient's chest x-ray. Chest x-ray is unremarkable for pulmonary edema, pneumothorax, pneumonia or focal cardiopulmonary abnormality. Initial troponin elevated consistent with myocardial ischemia The synthesis of the patient's history, physical exam, labs images suggest NSTEMI as a cause of his symptoms including near syncope, dizziness. He has normal renal function. I suspect is secondary to mild close ischemia. Given aspirin and Lovenox for antiplatelet and anticoagulant effect. Is admitted to PCU under hospitalist service. Also consulted cardiology agreed to see the patient as an inpatient. Dr. Driscoll (Cardiology) had no other immediate r ecommendations. The patient and/or family, caregivers express understanding. The patient and/or family, caregivers agrees with the plan. Shared decision making: I will have a discussion with the patient and or visitors regarding risk/benefits of further testing or admission. They will be made aware of of the risk/benefits inherent in this decision they will be given the opportunity to voice understanding. Total critical care time today provided was at least 0 minutes. This excludes separately billable procedures. Critical care time (if documented) is secondary to the patient having high probability of clinically significant/life threatening deterioration in the patient's condition which required my urgent intervention. Impression: 1. NSTEMI 2. Bradycardic 3. Dizziness 4. Near syncope Dispo: admit to PCU This note was generated with [employer] dictation software. It may contain incorrect words, spelling, and punctuation that were not noted in review of the chart prior to signing. Lab Data Labs: Laboratory Results - last 24 hr 07/24/23 07/24/23 12:10 14:55 WBC 6.9 RBC 4.79 Hgb 14.3 Hct 41.7 MCV 87.1 MCH 29.9 MCHC 34.3 RDW Std Deviation 39.8 RDW Coeff of Trace 12.5 Plt Count 122 L MPV 12.5 H Immature Gran % (Auto) 0.400 Neut % (Auto) 66.3 Lymph % (Auto) 21.7 Mcmullen % (Auto) 8.2 Eos % (Auto) 2.8 Baso % (Auto) 0.6 Absolute Neuts (auto) 4.6 Absolute Lymphs (auto) 1.49 Nucleated RBC % 0 Sodium 140 Potassium 3.5 Chloride 108 H Carbon Dioxide 28.0 Anion Gap 4 L BUN 14 Creatinine 0.99 Estim Creat Clear Calc 89.44 Est GFR (MDRD) Af Amer 98 Est GFR (MDRD) Non-Af 81 BUN/Creatinine Ratio 14.1 Glucose 99 Calcium 9.0 Magnesium 1.9 Troponin I High Sens 273 H* 242 H* Radiography Diagnostic Testing: Clinical Impression(s) from Imaging Studies Brain CT 07/24/23 12:52 IMPRESSION: Pansinusitis. Electronically Signed: Donal Rodriges MD at 13:48 EDT , Chest X-Ray 07/24/23 12:59 IMPRESSION: No acute abnormality is seen. Electronically Signed: Donal Rodriges MD at 13:27 EDT , Discharge Plan Disposition Disposition: Acute Care Hospital [facility] Discharge Date/Time: 07/24/23 16:16
--- NOTE | 2023-07-24 12:52 | CT_ITS ---
STUDY: CT BRAIN WITHOUT CONTRAST REASON FOR EXAM: Male, 62 years old. 2 week history of intermittent dizziness. Hypertension. RADIATION DOSAGE (If Supplied By Facility): CTDIvol = ( 47.06 ) mGy, DLP = ( 907.97 ) mGycm TECHNIQUE: Transaxial CT imaging of the brain was performed without administration of intravenous contrast material. Individualized dose optimization techniques were used for this CT. COMPARISON: No relevant priors. FINDINGS: Normal soft tissue structures. Normal calvarium. There is mild cerebral atrophy with widening of the extra-axial spaces and ventricular dilatation. There are areas of decreased attenuation within the white matter tracts of the supratentorial brain, consistent with microvascular disease changes. Normal basal ganglia and thalami. Normal brainstem. Normal cerebellum. There is no intracranial hemorrhage. There are no findings of an acute ischemic infarction. Atherosclerotic plaque formation of the cavernous portions of the internal carotid arteries bilaterally. Partial opacification of the maxillary sinuses bilaterally as well as the ethmoid sinuses worse on the left side. Mucosal thickening of the frontal sinuses. Partial opacification of the left sphenoid sinus. CT/Brain/Head without Contrast IMPRESSION: Pansinusitis. Electronically Signed: Donal Rodriges MD at 13:48 EDT ,
--- NOTE | 2023-07-24 12:53 | EKG12_ITS ---
Test Reason : NEURO S/SX Blood Pressure : / mmHG Vent. Rate : 050 BPM Atrial Rate : 050 BPM P-R Int : 194 ms QRS Dur : 090 ms QT Int : 432 ms P-R-T Axes : 051 069 048 degrees QTc Int : 393 ms Sinus bradycardia Otherwise normal ECG Confirmed by WARREN KIRAN, MAMADOU ([id number]), newspaper or periodical editor TRINA CADET ([id number]) on 07/26/2023 11:39:25 AM Referred By: Confirmed By:MAMADOU KELLEY MD
--- NOTE | 2023-07-24 12:56 | NURSING ---
NO OLD EKGS
--- NOTE | 2023-07-24 12:59 | RAD_ITS ---
STUDY: X-RAY CHEST REASON FOR EXAM: Male, 62 years old. Chest pain TECHNIQUE: Single AP portable view of the chest. COMPARISON: None. FINDINGS: EKG electrodes are seen. The lungs are clear and expanded. Scattered calcified granulomas. There is no demonstrated pleural abnormality. Normal size heart. Normal mediastinum and michael. Normal visualized pulmonary arteries. Normal visualized aortic arch and descending thoracic aorta. There are diffuse degenerative changes of the visualized thoracic spine. Normal visualized ribs, clavicles, and shoulders. There is no demonstrated abnormality of the visualized soft tissue structures of the upper abdomen. RAD/Chest 1 View (Portable) IMPRESSION: No acute abnormality is seen. Electronically Signed: Donal Rodriges MD at 13:27 EDT ,
[2023-07-24 13:05] LABS: Absolute Lymphocyte Count 1.49 X10^3/uL (0.83-4.51); Absolute Neutrophil Count 4.6 X10^3/uL (2.0-7.7); Basophil# 0.04 X10^3/uL; Basophil% 0.6 % (0-1); Eosinophil# 0.19 X10^3/uL; Eosinophils% 2.8 % (0-5); Hematocrit 41.7 % (40-54); Hemoglobin 14.3 g/dL (13.0-16.5); Lymphocyte # 1.49 X10^3/ul (0.83-4.51); Lymphocyte % 21.7 % (19-41); Mean Corp Hgb Conc 34.3 g/dL (32-36); Mean Corpuscular Hgb 29.9 pg (27.0-32.0); Mean Corpuscular Volume 87.1 fL (80-94); Mean Platelet Vol. 12.5 fl (6.2-12.0); Monocyte# 0.56 X10^3/uL; Monocyte% 8.2 % (0-10); NRBC Flagged by Analyzer 0 % (0-5); Neutrophil # 4.56 X10^3/uL (2.7-7.7); Neutrophil % 66.3 % (47-70); Platelet Count 122 K/mm3 (150-450); RBC Distribution Width CV 12.5 % (11.6-14.6); RBC Distribution Width SD 39.8 fl (35.1-43.9); Red Blood Count 4.79 M/mm3 (4.6-6.2); White Blood Count 6.9 K/mm3 (4.4-11.0)
[2023-07-24] MEDS: 0.9% Normal Saline (1000mL) 1,000 ML 1000 ML IV (13:09)
[2023-07-24 13:50] LABS: Anion Gap 4 (5-15); BUN 14 mg/dL (7-18); BUN/Creat Ratio 14.1 RATIO (10-20); Chloride 108 mmol/L (98-107); Creatinine, Serum 0.99 mg/dL (0.70-1.30); EST Glomerular Filtration Rate 81 mL/min (>60); Est Glom Filt Rate - Afr Amer 98 mL/min (>60); Estimated Creatinine Clearance 89.44 ml/min; Glucose 99 mg/dL (74-106); Potassium 3.5 mmol/L (3.5-5.1); Sodium Level 140 mmol/L (136-145); Troponin-I HS (w/2H Reflex) 273 pg/mL (3.0-78.0)
[2023-07-24 15:01] LABS: Reflex Troponin-HS? (from REC) Y
--- NOTE | 2023-07-24 15:12 | PCM.HP.STD ---
[facility] - General General Date of Admission: 07/24/23 Date of Service: 07/24/23 Chief Complaint: Dizziness, Near Syncope and Tingling in Arms. HPI Narrative GUERRERO PLATA, is a 62 M with a past medical history of essential hypertension, hypothyroidism; with history of subtotal thyroidectomy, obesity; BMI 34.9 this admission, history of tobacco abuse, GERD, history of cholecystectomy and osteoarthritis; with history of Left TKR who presents to [facility] ER complaining of dizziness, near syncope and tingling in arms. Mr. Plata reports symptoms began approximately 2 weeks prior to admission the insidious onset of intermittent dizziness while sitting culminating in him almost passing out at work. He denies any exertional symptoms, chest pain or palpitations but he does admit that his dizziness episodes last approximately 5 to 6 seconds before resolving spontaneously but have become acutely worse just prior to arrival. He also denies recent bleeding or volume loss such as from vomiting or diarrhea. He additionally denies associated headache, focal neurologic weakness, fever, chills, nausea, vomiting or diaphoresis. In the ER his CT scan of the head was positive for evidence of pansinusitis but was negative for acute intracranial pathology that would explain his symptoms but he was noted to have an initial troponin of 273 pg/mL consistent with non-ST elevation CA with dizziness and near syncope and he was then admitted to the PCU for ongoing care for stay that is expected to be greater than 48 hours. [facility] Medical History Anxiety Former smoker Gastroesophageal reflux disease Hypertension Hypothyroidism Myocardial infarct Home Medications amlodipine 10 mg tablet 1 tab PO DAILY BP 10/15/21 [History Last Taken Unknown] bisoprolol 5 mg-hydrochlorothiazide 6.25 mg tablet 2 tab PO DAILY BP 10/15/21 [History Last Taken Unknown] potassium chloride 20 mEq tablet,extended release(part/cryst) 1 tab PO DAILY supplement 10/15/21 [History Last Taken Unknown] omega-3 fatty acids 2,000 mg PO DAILY supplement 10/19/21 [History Last Taken Unknown] omeprazole 20 mg capsule,delayed release 20 mg PO DAILY acid reflux 10/19/21 [History Last Taken Unknown] naproxen 375 mg tablet 375 mg PO BIDCM #60 tabs 10/29/21 [Rx Last Taken Unknown] aspirin 81 mg tablet,delayed release (Adult Aspirin Regimen) 81 mg PO DAILY 07/24/23 [History Last Taken Unknown] atorvastatin 10 mg tablet 10 mg PO DAILY 07/24/23 [History Last Taken Unknown] cyanocobalamin (vitamin B-12) 1,000 mcg capsule 1,000 mcg PO DAILY 07/24/23 [History Last Taken Unknown] levothyroxine 200 mcg tablet 200 mcg PO .COMPLEX disorder of thyroid gland 07/24/23 [History Last Taken Unknown] lisinopril 20 mg tablet 20 mg PO DAILY 07/24/23 [History Last Taken Unknown] trazodone 50 mg tablet 50 mg PO QHS PRN PRN insomnia 07/24/23 [History Last Taken Unknown] Allergy/AdvReac Type Severity Reaction Status Date / Time codeine Allergy Itching Verified 07/24/23 11:35 Family History Mother Cancer CAD (coronary artery disease) Diabetes Father Cancer Brother Prostate cancer Surgical History History of cholecystectomy History of knee replacement procedure of left knee History of thyroidectomy, subtotal History of umbilical hernia repair Social History household members: spouse Smoking Status: Former smoker Smokeless tobacco user: snuff alcohol intake: current alcohol intake frequency: 0-2 drinks per day substance use type: does not use ROS ROS Narrative Review of systems: General: Patient denies fever or chills. HENT: Denies headache, denies stuffy nose, denies sore throat EYES: Denies changes in vision or discharge from eyes. Resp: Denies cough, denies shortness of breath Cardiac: Patient admits to syncopal event but he denies chest pain, palpitations or heart racing. GI: Denies abdominal pain, denies changes in bowel, denies nausea or vomiting. : Denies changes in urination Extremity: Denies swelling Musculoskeletal: Feels somewhat generally weak and unwell but denies arthralgias or myalgias. Neuro: Patient admits to tingling and sensation in his arms and syncopal event as per HPI. Heme: Denies any bleeding or bruising Skin: Denies rashes Psychiatric: No complaints voiced related uncontrolled depression or anxiety. Endocrine: No polyuria, polydipsia or polyphagia. The rest of the 14 point ROS was negative except for positives in HPI. Vital Signs Vital Signs Vital Signs: 07/24/23 11:31 07/24/23 12:35 07/24/23 14:10 Temperature 97 F L Temperature Source Temporal Pulse Rate 54 L 46 L Respiratory Rate 14 17 Blood Pressure 147/78 H 118/69 Blood Pressure Mean 101 85 Pulse Ox 96 96 Oxygen Delivery Method Room Air Room Air Room Air 07/24/23 15:00 Temperature Temperature Source Pulse Rate 54 L Respiratory Rate 18 Blood Pressure 129/70 H Blood Pressure Mean 89 Pulse Ox 98 Oxygen Delivery Method Room Air Weight Weight: 230 lb 2.601 oz Body Mass Index (BMI) 34.9 Physical Exam Const alert, oriented x3, no apparent distress, average body habitus and healthy appearing General Appearance: cooperative HEENT normocephalic, head/scalp atraumatic, hearing grossly normal bilaterally and moist oral mucous membranes Eyes PERRL and EOMs intact bilaterally Neck no lymphadenopathy and supple Resp normal respiratory effort, no retractions, no use of accessory muscles and clear to auscultation bilaterally Cardio regular rate and regular rhythm GI normal to inspection, nondistended, normoactive bowel sounds, soft to palpation, non-tender and non-distended Extremity normal to inspection and full ROM Skin Skin Narrative: Patient has no evidence of rash, abscess or jaundice. Neuro oriented x3, CN's II-XII intact bilaterally, moves all extremities and no focal motor deficits Sensorium / Orientation: awake, alert, oriented to person, oriented to place and oriented to time Speech: speech normal Motor Exam: strength 5/5 throughout Psych affect normal Results Medical Records Data Attestation: I reviewed the patient's medical records Lab / Micro Data Attestation: I reviewed the patient's lab results. 07/24/23 12:10 07/24/23 12:10 Labs: Laboratory Results - last 24 hr 07/24/23 12:10: WBC 6.9, RBC 4.79, Hgb 14.3, Hct 41.7, MCV 87.1, MCH 29.9, MCHC 34.3, RDW Std Deviation 39.8, RDW Coeff of Trace 12.5, Plt Count 122 L, MPV 12.5 H, Immature Gran % (Auto) 0.400, Neut % (Auto) 66.3, Lymph % (Auto) 21.7, Nash % (Auto) 8.2, Eos % (Auto) 2.8, Baso % (Auto) 0.6, Absolute Neuts (auto) 4.6, Absolute Lymphs (auto) 1.49, Nucleated RBC % 0, Sodium 140, Potassium 3.5, Chloride 108 H, Carbon Dioxide 28.0, Anion Gap 4 L, BUN 14, Creatinine 0.99, Estim Creat Clear Calc 89.44, Est GFR (MDRD) Af Amer 98, Est GFR (MDRD) Non-Af 81, BUN/Creatinine Ratio 14.1, Glucose 99, Calcium 9.0, Troponin I High Sens 273 H* Imaging Radiology Impression Brain CT 07/24/23 12:52 IMPRESSION: Pansinusitis. Electronically Signed: Donal Rodriges MD at 13:48 EDT , Chest X-Ray 07/24/23 12:59 IMPRESSION: No acute abnormality is seen. Electronically Signed: Donal Rodriges MD at 13:27 EDT , Assessment & Plan Assessment/Plan (1) Non-ST elevation myocardial infarction (NSTEMI), initial episode of care: (2) Near syncope: (3) Pansinusitis: QUALIFIERS: Chronicity: unspecified Qualified Code(s): J32.4 - Chronic pansinusitis (4) Thrombocytopenia: (5) Obesity: QUALIFIERS: Body mass index: BMI 34.0-34.9 Obesity classification: adult class 1 (BMI 30 - 34.9) Obesity type: unspecified obesity type Serious obesity comorbidity presence: with serious comorbidity Qualified Code(s): E66.9 - Obesity, unspecified; Z68.34 - Body mass index [BMI] 34.0-34.9, adult (6) Hypothyroidism: QUALIFIERS: Hypothyroidism type: unspecified Qualified Code(s): E03.9 - Hypothyroidism, unspecified PLAN: Plan 1. Non-ST elevation CA; evidenced by initial troponin of 273 pg/mL present on admission with dizziness patient near syncope - Admit to PCU. Give aspirin, Plavix and statin plus give full-dose Lovenox and continue bisoprolol/HCTZ. Serialize troponin. Check echocardiogram to evaluate LVEF. Finally, we will consult informatica mdm developer on-call to see this patient on rounds in a.m. further recommendations regarding left heart cath with help appreciated in advance. 2. Pansinusitis evident on admission CT complicating #1 - Start Augmentin 875 mg p.o. twice daily hypoxia and monitor for improvement. 3. Moderate thrombocytopenia of 122 present on admission compounding #1 & #2 - Check CBC daily to ensure continued stability. Avoid heparin to minimize risk of HIT. 4. Obesity; BMI 34.9 this admission - Weight loss will be recommended. 5. Essential hypertension - Continue home regimen plus give IV hydralazine as needed for systolic blood pressure greater than 160 mmHg. 6. Hypothyroidism; with history of subtotal thyroidectomy - Resume Synthroid at current dose plus check TSH in light of #1. 7. History of tobacco abuse - Noted. 8. GERD - Continue PPI. 9. History of cholecystectomy - Noted. 10. Osteoarthritis; with history of Left TKR - Give Tylenol as needed. 11. DVT prophylaxis - Patient on full-dose Lovenox for #1 which will be continued. Total time: Approximately 75 minutes. Charges/Coding Visit Charges Inpatient E&M: 86111 Init Hosp L3
--- NOTE | 2023-07-24 15:24 | NURSING ---
DR MILLER FOR DR BROWN
[2023-07-24] MEDS: Enoxaparin 100 MG/ML Syringe SC ×2 (15:38→22:10)
--- NOTE | 2023-07-24 15:38 | NURSING ---
PCU PAUL NSTEMI, NEAR SYNCOPE, PANSINUSITIS ON CT
[2023-07-24 15:42] LABS: Troponin-I HS 242 pg/mL (3.0-78.0)
--- NOTE | 2023-07-24 15:45 | ED.RN ---
PT MEDICATED PER EMS STUDENT
[2023-07-24 16:16] LABS: Magnesium 1.9 mg/dL (1.6-2.6)
--- NOTE | 2023-07-24 16:53 | EKG12_ITS ---
Test Reason : Blood Pressure : / mmHG Vent. Rate : 050 BPM Atrial Rate : 050 BPM P-R Int : 190 ms QRS Dur : 096 ms QT Int : 450 ms P-R-T Axes : 051 068 046 degrees QTc Int : 410 ms Sinus bradycardia Otherwise normal ECG When compared with ECG of 24-JUL-2023 13:09, MANUAL COMPARISON REQUIRED, DATA IS UNCONFIRMED Confirmed by WARREN KIRAN, MAMADOU ([id number]), associate entertainment editor ISABELA MELTON ([id number]) on 07/27/2023 9:41:38 AM Referred By: VON Confirmed By:MAMADOU KELLEY MD
--- NOTE | 2023-07-24 16:53 | ECHOCS_ITS ---
Reason For Study: NSTEMI Procedure This was a 2D Doppler, Color Flow transthoracic echocardiogram. The study was technically difficult. Exam performed portable in patient room. Left Ventricle Normal LV size. The estimated ejection fraction is 65 %. Diastolic function is indeterminate. No regional wall motion abnormalities noted. Right Ventricle Normal RV size. Normal systolic function. Atria The left atrium is mildly enlarged. Normal right atrium. No doppler evidence for ASD. Mitral Valve There is moderate mitral annular calcification. There is no mitral valve stenosis. Trivial mitral valve insufficiency. Tricuspid Valve There is no tricuspid stenosis. Trivial tricuspid valve insufficiency. Pulmonary artery systolic pressure is 40 mmHg. Aortic Valve Aortic sclerosis, no stenosis. Trisinus/trileaflet aortic valve. There is no aortic stenosis. No aortic valve insufficiency. Pulmonic Valve There is no pulmonic valvular stenosis. Trivial pulmonic valve insufficiency. Great Vessels Normal aortic root. Pericardium/Pleural No pericardial effusion. MMode/2D Measurements & Calculations LVIDd: 5.8 cm IVSd: 1.1 cm Ao root diam: 3.8 cm LVIDs: 3.3 cm LVPWd: 1.0 cm RVDd: 3.7 cm FS: 43.0 % LAV(MOD-bp): 78.2 ml LVAd ap4: 35.3 cm2 LVAd ap2: 36.7 cm2 LAV(MOD-bp) Indexed: 36.1 ml/m2 LVLd ap4: 8.8 cm LVLd ap2: 9.0 cm LAV(MOD-sp2): 73.7 ml EDV(MOD-sp4): 112.4 ml EDV(MOD-sp2): 123.2 ml LAV(MOD-sp4): 74.5 ml EDV(sp4-el): 119.4 ml EDV(sp2-el): 127.0 ml LVAs ap4: 18.5 cm2 LVAs ap2: 17.7 cm2 LVLs ap4: 7.5 cm LVLs ap2: 7.3 cm ESV(MOD-sp4): 37.4 ml ESV(MOD-sp2): 36.2 ml ESV(sp4-el): 38.9 ml ESV(sp2-el): 36.1 ml EF(MOD-sp4): 66.8 % EF(MOD-sp2): 70.6 % EF(sp4-el): 67.4 % SV(MOD-sp4): 75.1 ml SV(MOD-sp2): 87.0 ml SV(sp4-el): 80.5 ml LA dimension(2D): 4.2 cm LA A4 area: 23.7 cm2 RA A4 area: 14.6 cm2 TAPSE: 2.3 cm Time Measurements MV dec time: 0.24 sec Doppler Measurements & Calculations MV E max leobardo: 102.1 cm/sec Lat Peak E' Leobardo: 10.4 cm/sec Med Peak E' Leobardo: 9.5 cm/sec MV A max leobardo: 79.5 cm/sec E/E' lat: 9.8 E/E' med: 10.7 MV E/A: 1.3 MV dec slope: 418.2 cm/sec2 Ao V2 max: 179.6 cm/sec LV V1 max: 144.0 cm/sec Ao max P.9 mmHg LV V1 max P.3 mmHg Ao V2 mean: 118.9 cm/sec LV V1 mean P.3 mmHg Ao mean P.4 mmHg LV V1 mean: 96.0 cm/sec Ao V2 VTI: 38.0 cm LV V1 VTI: 35.1 cm AV (velocity ratio): 0.92 PA V2 max: 112.9 cm/sec TR max leobardo: 302.4 cm/sec TR max P.6 mmHg ECHO/Echo Complete W/ Contrast Interpretation Summary The estimated ejection fraction is 65 %. Diastolic function is indeterminate. The left atrium is mildly enlarged. Trivial mitral valve insufficiency. Aortic sclerosis, no stenosis. Ordering Physician: Coy Wills Referring Physician: Demarco Hernandez Performed By: Vijaya Henderson RDCS
[2023-07-24] MEDS: Clopidogrel Bisulfate 75 MG Tablet PO (18:10)
[2023-07-24 19:20] LABS: Troponin-I HS 283 pg/mL (3.0-78.0)
[2023-07-24] MEDS: Amox/Clavulanate 875 MG Tablet PO (20:22)
[2023-07-24] MEDS: Lactobacillis Acidophilus 2 CAP PO (22:09)
[2023-07-25 03:04] VITALS: BP 126/72; PULSE 51; RESP 16; TEMP 36.4; O2SAT 95
[2023-07-25 07:02] LABS: Hematocrit 43.6 % (40-54); Mean Corp Hgb Conc 34.4 g/dL (32-36); Mean Corpuscular Hgb 30.5 pg (27.0-32.0); Mean Corpuscular Volume 88.8 fL (80-94); Mean Platelet Vol. 12.1 fl (6.2-12.0); Platelet Count 123 K/mm3 (150-450); RBC Distribution Width CV 12.4 % (11.6-14.6); RBC Distribution Width SD 40.4 fl (35.1-43.9); Red Blood Count 4.91 M/mm3 (4.6-6.2)
[2023-07-25 07:14] VITALS: O2SAT 96
--- NOTE | 2023-07-25 07:24 | PCM.PN.HOSP ---
Reason for Visit Reason for Visit: Diagnoses Thrombocytopenia, unspecified (07/24/23) Hypothyroidism, unspecified (07/24/23) Obesity, unspecified (07/24/23) Non-ST elevation (NSTEMI) myocardial infarction (07/24/23) Chronic pansinusitis (07/24/23) Syncope and collapse (07/24/23) Body mass index [BMI] 34.0-34.9, adult (07/24/23) Objective Data Objective Data Vital Signs: Vital Signs Temp Pulse Resp BP Pulse Ox O2 Del Method 97.6 F L 51 L 16 126/72 H 95 Room Air 07/25/23 03:04 07/25/23 03:04 07/25/23 03:04 07/25/23 03:04 07/25/23 03:04 07/25/23 03:04 Oxygen Delivery Method Room Air Weight: 229 lb 0.964 oz Body Mass Index (BMI) 34.8 Intake & Output: Intake and Output for Last 24 Hours 07/23/23 07/24/23 07/25/23 23:59 23:59 23:59 Intake Total 1000 / 1000 Balance 1000 / 1000 Lab / Micro Data 07/25/23 06:35 07/25/23 06:35 Labs: Laboratory Results - last 24 hr 07/24/23 12:10: WBC 6.9, RBC 4.79, Hgb 14.3, Hct 41.7, MCV 87.1, MCH 29.9, MCHC 34.3, RDW Std Deviation 39.8, RDW Coeff of Trace 12.5, Plt Count 122 L, MPV 12.5 H, Immature Gran % (Auto) 0.400, Neut % (Auto) 66.3, Lymph % (Auto) 21.7, Rolette % (Auto) 8.2, Eos % (Auto) 2.8, Baso % (Auto) 0.6, Absolute Neuts (auto) 4.6, Absolute Lymphs (auto) 1.49, Nucleated RBC % 0, Sodium 140, Potassium 3.5, Chloride 108 H, Carbon Dioxide 28.0, Anion Gap 4 L, BUN 14, Creatinine 0.99, Estim Creat Clear Calc 89.44, Est GFR (MDRD) Af Amer 98, Est GFR (MDRD) Non-Af 81, BUN/Creatinine Ratio 14.1, Glucose 99, Calcium 9.0, Troponin I High Sens 273 H* 07/24/23 14:55: Magnesium 1.9, Troponin I High Sens 242 H* 07/24/23 18:25: Troponin I High Sens 283 H* 07/25/23 06:35: WBC 6.0, RBC 4.91, Hgb 15.0, Hct 43.6, MCV 88.8, MCH 30.5, MCHC 34.4, RDW Std Deviation 40.4, RDW Coeff of Trace 12.4, Plt Count 123 L, MPV 12.1 H Radiography Diagnostic Testing: Radiology Impression Brain CT 07/24/23 12:52 IMPRESSION: Pansinusitis. Electronically Signed: Donal Rodriges MD at 13:48 EDT , Chest X-Ray 07/24/23 12:59 IMPRESSION: No acute abnormality is seen. Electronically Signed: Donal Rodriges MD at 13:27 EDT , Physical Exam Narrative Seen and examined. Patient admitted with 2 weeks of dizziness and yesterday was foggy and felt like not very alert. Denies chest pain pressure tightness or shortness of breath. 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 He feels his head is heavy but no fever or chills Physical exam General: Alert, Oriented x3, Cooperative HEENT: Atraumatic, PERRLA, EOMI, Normocephalic Oral: No Gingival or Mucosal Lesions/ Ulcerations Neck: Supple, No JVD, Negative Carotid Bruits Chest wall/Lungs: Air entry diminished in bilateral lung bases. No crepitation/rhonchi Cardiovascular: Sinus bradycardia, normal S1, Normal S2, systolic murmur Abdomen: Bowel Sounds Present, Soft, Non Tender, Non-Distended : No dysuria. No renal angle tenderness. No suprapubic tenderness. Extremities: No edema, Capillary Refill Less than 3 Seconds Skin: No rashes, No breakdown Musculoskeletal: No Tenderness to Palpation of Joints or Extremities Neurological: Cranial nerves II-XII grossly intact, DTR 2+/4. No acute focal neurological deficit. Psych/Mental Status: Normal Affect, Appropriate. Assessment & Plan Assessment/Plan (1) Non-ST elevation myocardial infarction (NSTEMI), initial episode of care: (2) Near syncope: (3) Pansinusitis: QUALIFIERS: Chronicity: unspecified Qualified Code(s): J32.4 - Chronic pansinusitis (4) Thrombocytopenia: (5) Obesity: QUALIFIERS: Body mass index: BMI 34.0-34.9 Obesity classification: adult class 1 (BMI 30 - 34.9) Obesity type: unspecified obesity type Serious obesity comorbidity presence: with serious comorbidity Qualified Code(s): E66.9 - Obesity, unspecified; Z68.34 - Body mass index [BMI] 34.0-34.9, adult (6) Hypothyroidism: QUALIFIERS: Hypothyroidism type: unspecified Qualified Code(s): E03.9 - Hypothyroidism, unspecified PLAN: Plan 62-year-old gentleman was admitted with symptoms of dizziness for 2 weeks while sitting, tingling in both arms on the day of admission, near syncopal episode at work. Denies any focal weakness or loss of sensation. 1. Elevated troponin with dizziness and sinus bradycardia with suspicion of non-STEMI/demand ischemia: Admit to Serialize troponin. Check echocardiogram to evaluate LVEF. Cardiology is consulted. Twelve-lead EKG shows sinus bradycardia normal SD interval, normal axis no significant ST-T changes. 07/24: Troponins 273, 242 and 283 therefore not trending in either direction. More sore patient symptoms does not typical symptoms of non-STEMI except dizziness and sinus bradycardia. Patient on enoxaparin. 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 Unclear whether related to ischemia as non-STEMI or trazodone. Patient was started on trazodone about 2 weeks ago and he states he takes as needed for dayshift insomnia 2. Pansinusitis evident on admission CT scan- Start Augmentin 875 mg p.o. twice daily hypoxia and monitor for improvement. 3. Moderate thrombocytopenia of 122 present on admission - Check CBC daily to ensure continued stability. Avoid heparin to minimize risk of HIT. 4. Obesity; BMI 34.9 this admission - Weight loss will be recommended. 5. Essential hypertension - Continue home regimen plus give IV hydralazine as needed for systolic blood pressure greater than 160 mmHg. 5/: Blood pressure profile is normal 126/72. 6. Hypothyroidism; with history of subtotal thyroidectomy - Resume Synthroid. TSH 0.62. 7. History of tobacco abuse - Noted. 8. GERD - Continue PPI. 9. History of cholecystectomy - Noted. 10. Osteoarthritis; with history of Left TKR - Give Tylenol as needed. 11. DVT prophylaxis - Patient on full-dose Lovenox for #1 which will be continued. Total time of the visit including total time spent in counseling or coordination of care, (more than 50% of the total time, spent in obtaining medical information from nurses and other ancillary care providers,explaining to the patient about labs, imaging, diagnosis and management of active complex medical conditions), clinical update and explaining the different symptoms of patient is present to him and his , discussion with formula checker, review of labs and imaging is 45 minutes. Charges/Coding Visit Charges Inpatient E&M: 94120 Subs Hosp L3
[2023-07-25 07:40] LABS: ALB/GLOB Ratio 0.8 RATIO (0.9-2.4); AST(SGOT) 38 U/L (15-37); Alanine Aminotransfer ALT/SGPT 42 U/L (16-61); Albumin, Serum 3.4 g/dL (3.2-5.0); Alkaline Phosphatase 143 U/L (45-117); Anion Gap 3 (5-15); BUN 14 mg/dL (7-18); BUN/Creat Ratio 14.1 RATIO (10-20); Calcium,Total 8.9 mg/dL (8.5-10.1); Chloride 107 mmol/L (98-107); Cholesterol 136 mg/dL (200); Creatinine, Serum 0.99 mg/dL (0.70-1.30); EST Glomerular Filtration Rate 81 mL/min (>60); Est Glom Filt Rate - Afr Amer 98 mL/min (>60); Estimated Creatinine Clearance 89.23 ml/min; Glucose 113 mg/dL (74-106); High Density Lipoprotein 21 mg/dL; Potassium 4.2 mmol/L (3.5-5.1); Protein, Total 7.4 g/dL (6.4-8.2); Sodium Level 139 mmol/L (136-145); Thyroid Stim Hormone (TSH) 0.62 uIU/mL (0.358-3.74); Triglycerides 364 mg/dL; Very Low Density Lipoprotein 73 mg/dL (5-40)
[2023-07-25 08:25] LABS: D-Dimer Quantitative (DVT/PE) 0.45 FEU/ug/m (0.27-0.49)
[2023-07-25 09:05] VITALS: BP 152/78; PULSE 59; RESP 18; TEMP 36.7; O2SAT 99
[2023-07-25] MEDS: amLODIPine 10 MG Tablet PO (09:29)
[2023-07-25] MEDS: Aspirin E.C. 81 MG Tablet PO (09:29)
[2023-07-25] MEDS: Clopidogrel Bisulfate 75 MG Tablet PO (09:29)
[2023-07-25] MEDS: Lisinopril 20 MG Tablet PO (09:29)
--- NOTE | 2023-07-25 11:30 | CASEMGMT ---
RN CM Face to Face with patient for initial transition planning/care coordination assessment. RN CM introduced self and role at [facility]. Patient sitting in chair, alert and oriented, at bedside. Patient willing to participate in assessment and is able to answer all questions appropriately. Care providers, pharmacy, and demographics verified. PCP: David Specialists: Danae, urologist; Preferred Pharmacy: [facility] Insurance: [employer] Prescription Benefit: yes Living Will/HPOA: yes, Sepideh Rosenberg LNOK: Living Arrangements: Patient lives with in a single story home with 3 steps and railing to enter the home. Patient states he is independent Transportation: self, DME/HHC: Patient has raised toilets at home. No previous HHC or SNF Patient wishes to discharge home, denies need for home health at this time. Patient states he has no further needs or concerns at this time. CM to follow for discharge planning needs that may arise. Disposition Plan: Patient to discharge home with family support and follow-up plans in place. Sera GRANADOS, RN, CM
[2023-07-25] MEDS: hydroCHLOROthiazide 12.5mg 12.5 MG PO (11:37)
[2023-07-25] MEDS: Cyanocobalamin 500 MCG Tablet 1000 MCG PO (11:37)
[2023-07-25] MEDS: Potassium Chloride Oral Tablet 20 MEQ PO (11:37)
[2023-07-25] MEDS: Amox/Clavulanate 875 MG Tablet PO ×2 (11:37→18:53)
[2023-07-25] MEDS: Bisoprolol Fumarate 5 MG Tablet 10 MG PO (11:37)
[2023-07-25] MEDS: Omega-3 Acid Ethyl Esters 1 GM Capsule 2 GM PO (11:37)
[2023-07-25] MEDS: Pantoprazole Sodium 20 MG Tablet PO (11:37)
[2023-07-25] MEDS: Atorvastatin Calcium 10 MG Tablet PO (11:38)
[2023-07-25] MEDS: Lactobacillis Acidophilus 2 CAP PO ×2 (11:38→22:41)
--- NOTE | 2023-07-25 14:18 | CON.PCM.CA_ITS ---
Assessment & Plan Assessment/Plan (1) Elevated troponin: PLAN: Troponin is in the nonspecific range. No anginal symptoms. Reasonable to proceed with Lexiscan stress testing. (2) Dizziness: PLAN: Hold beta-meme as well as trazodone. Continue telemonitoring. Symptoms could be related to patient's upper respiratory infection or to medications (trazodone, beta-meme). (3) Bradycardia: HPI Consult Data Date of Consult: 07/25/23 HPI Narrative Reason for Consultation: Elevated troponin, dizziness, bradycardia HPI Narrative: GUERRERO PLATA, is a 62 M who presents with episodes of dizziness and feeling foggy. Patient states that over the last 2 weeks he has had episodes where he feels dizzy for about a second and then it gets better on its own. Over the last couple of days it felt a little bit more intense but was still of short duration. He has had these episodes multiple times prior to presentation. The day before presentation he was also feeling very foggy. Patient's high- sensitivity troponin was in the 200s range. He denies any chest pain or shortness of breath. He was started on trazodone also about 2 weeks back and the symptoms have been going on for about the same duration as well. His trazodone has been on hold and he says that he is feeling better. Telemetry reveals bradycardia with a heart rate in the 40s to 50s. Patient also is dealing with a sinus infection and is on Augmentin for that. Review of systems: All systems reviewed. All else is negative except that in HPI FORMERLY [facility], [facility] Medical History Anxiety Former smoker Gastroesophageal reflux disease Hypertension Hypothyroidism Myocardial infarct Home Medications amlodipine 10 mg tablet 1 tab PO DAILY BP 10/15/21 [History Last Taken Unknown] bisoprolol 5 mg-hydrochlorothiazide 6.25 mg tablet 2 tab PO DAILY BP 10/15/21 [History Last Taken Unknown] potassium chloride 20 mEq tablet,extended release(part/cryst) 1 tab PO DAILY supplement 10/15/21 [History Last Taken Unknown] omega-3 fatty acids 2,000 mg PO DAILY supplement 10/19/21 [History Last Taken Unknown] omeprazole 20 mg capsule,delayed release 20 mg PO DAILY acid reflux 10/19/21 [History Last Taken Unknown] naproxen 375 mg tablet 375 mg PO BIDCM #60 tabs 10/29/21 [Rx Last Taken Unknown] aspirin 81 mg tablet,delayed release (Adult Aspirin Regimen) 81 mg PO DAILY 07/24/23 [History Last Taken Unknown] atorvastatin 10 mg tablet 10 mg PO DAILY 07/24/23 [History Last Taken Unknown] cyanocobalamin (vitamin B-12) 1,000 mcg capsule 1,000 mcg PO DAILY 07/24/23 [History Last Taken Unknown] levothyroxine 200 mcg tablet 200 mcg PO .COMPLEX disorder of thyroid gland 07/24/23 [History Last Taken Unknown] lisinopril 20 mg tablet 20 mg PO DAILY 07/24/23 [History Last Taken Unknown] trazodone 50 mg tablet 50 mg PO QHS PRN PRN insomnia 07/24/23 [History Last Taken Unknown] Allergy/AdvReac Type Severity Reaction Status Date / Time codeine Allergy Itching Verified 07/24/23 11:35 Family History Mother Cancer CAD (coronary artery disease) Diabetes Father Cancer Brother Prostate cancer Surgical History History of cholecystectomy History of knee replacement procedure of left knee History of thyroidectomy, subtotal History of umbilical hernia repair Social History household members: spouse Smoking Status: Former smoker Smokeless tobacco user: snuff alcohol intake: current alcohol intake frequency: 0-2 drinks per day substance use type: does not use Physical Exam Const alert and oriented x3 HEENT normocephalic Eyes no scleral icterus Resp normal respiratory effort Cardio regular rate Extremity no pedal edema Skin no rashes or lesions noted Psych mental status grossly normal Risk Stratification Risk Stratification Applicable: No Charges/Coding Visit Charges Inpatient E&M: 64603 Init Hosp L2 Objective Data Vital Signs: Vital Signs Temp Pulse Resp BP Pulse Ox O2 Del Method 98.0 F 59 L 18 152/78 H 99 Room Air 07/25/23 09:05 07/25/23 09:05 07/25/23 09:05 07/25/23 09:05 07/25/23 09:05 07/25/23 14:00 Oxygen Delivery Method Room Air Weight: 229 lb 0.964 oz Body Mass Index (BMI) 34.8 Intake & Output: Intake and Output for Last 24 Hours 07/23/23 07/24/23 07/25/23 23:59 23:59 23:59 Intake Total 1000 / 1000 120 / 120 Balance 1000 / 1000 120 / 120 Lab / Micro Data 07/25/23 06:35 07/25/23 06:35 Labs: Laboratory Results - last 24 hr 07/24/23 14:55: Magnesium 1.9, Troponin I High Sens 242 H* 07/24/23 18:25: Troponin I High Sens 283 H* 07/25/23 06:35: WBC 6.0, RBC 4.91, Hgb 15.0, Hct 43.6, MCV 88.8, MCH 30.5, MCHC 34.4, RDW Std Deviation 40.4, RDW Coeff of Trace 12.4, Plt Count 123 L, MPV 12.1 H , D-Dimer Quant (PE/DVT) 0.45, Sodium 139, Potassium 4.2, Chloride 107, Carbon Dioxide 29.0, Anion Gap 3 L, BUN 14, Creatinine 0.99, Estim Creat Clear Calc 89.23, Est GFR (MDRD) Af Amer 98, Est GFR (MDRD) Non-Af 81, BUN/Creatinine Ratio 14.1, Glucose 113 H, Calcium 8.9, Total Bilirubin 0.40, AST 38 H, ALT 42, Alkaline Phosphatase 143 H, Total Protein 7.4, Albumin 3.4, Globulin 4.0, Albumin/Globulin Ratio 0.8 L, Triglycerides 364 H, Cholesterol 136, LDL Cholesterol 42, VLDL Cholesterol 73 H, HDL Cholesterol 21 L, TSH 0.62 Cardiology Labs/Tests 07/24/23 14:55: Magnesium 1.9 07/25/23 06:35: WBC 6.0, RBC 4.91, Hgb 15.0, Hct 43.6, MCV 88.8, MCH 30.5, MCHC 34.4, Plt Count 123 L, MPV 12.1 H, D-Dimer Quant (PE/DVT) 0.45, Sodium 139, Potassium 4.2, Chloride 107, Carbon Dioxide 29.0, Anion Gap 3 L, BUN 14, Creatinine 0.99, Est GFR (MDRD) Af Amer 98, Est GFR (MDRD) Non-Af 81, BUN/Creatinine Ratio 14.1, Glucose 113 H, Calcium 8.9, Total Bilirubin 0.40, Triglycerides 364 H, Cholesterol 136, LDL Cholesterol 42, VLDL Cholesterol 73 H, HDL Cholesterol 21 L Rhythm: EKG: ECHO: Stress Test: Cardiac Cath: PCI: CT Surgery: Holter monitor: EPS: PPM: CXR: Chest CT Scan: Radiography Diagnostic Testing: Radiology Impression Echocardiogram 07/24/23 16:53 Interpretation Summary The estimated ejection fraction is 65 %. Diastolic function is indeterminate. The left atrium is mildly enlarged. Trivial mitral valve insufficiency. Aortic sclerosis, no stenosis. Ordering Physician: Coy Wills Referring Physician: Demarco Hernandez Performed By: Vijaya Henderson RDCS
[2023-07-25 15:05] VITALS: BP 140/82; PULSE 51; RESP 18; TEMP 36.6; O2SAT 96
[2023-07-25 22:37] VITALS: BP 135/75; PULSE 51; RESP 16; TEMP 36.4; O2SAT 96
[2023-07-26] VITALS (8 sets, daily range): BP systolic 120–142; BP diastolic 57–78; PULSE 53–60; RESP 16–18; TEMP 36.4–36.8; O2SAT 95–98
--- NOTE | 2023-07-26 05:55 | EKG12_ITS ---
Test Reason : AM EKG Blood Pressure : / mmHG Vent. Rate : 052 BPM Atrial Rate : 052 BPM P-R Int : 188 ms QRS Dur : 090 ms QT Int : 432 ms P-R-T Axes : 044 059 030 degrees QTc Int : 401 ms Sinus bradycardia Otherwise normal ECG Confirmed by WARREN KIRAN, MAMADOU ([id number]), script editor ISABELA MELTON ([id number]) on 07/27/2023 9:40:44 AM Referred By: Confirmed By:MAMAODU KELLEY MD
[2023-07-26] MEDS: Levothyroxine 100 MCG Tablet 200 MCG PO (06:47)
[2023-07-26] MEDS: Aspirin E.C. 81 MG Tablet PO (06:47)
[2023-07-26] MEDS: Clopidogrel Bisulfate 75 MG Tablet PO (06:48)
[2023-07-26] MEDS: Pantoprazole Sodium 20 MG Tablet PO (11:11)
[2023-07-26] MEDS: Lactobacillis Acidophilus 2 CAP PO ×2 (11:11→22:39)
[2023-07-26] MEDS: Amox/Clavulanate 875 MG Tablet PO ×2 (11:11→20:03)
[2023-07-26] MEDS: Atorvastatin Calcium 10 MG Tablet PO (11:12)
[2023-07-26] MEDS: Potassium Chloride Oral Tablet 20 MEQ PO (11:12)
[2023-07-26] MEDS: Cyanocobalamin 500 MCG Tablet 1000 MCG PO (11:12)
[2023-07-26] MEDS: Omega-3 Acid Ethyl Esters 1 GM Capsule 2 GM PO (11:12)
--- NOTE | 2023-07-26 12:37 | STRESSREP ---
Stress Test Report Date: 07/26/2023 Procedure: Pharmacologic stress nuclear imaging study Indications: [Elevated troponin, dizziness] Consent: Per the patient Procedure: The patient underwent pharmacologic (Regadenoson) evaluation with a peak heart rate of 80 beats per minute (50%predicted maximal heart rate) and a peak blood pressure of 132/70 mmHg. The baseline ECG demonstrated sinus bradycardia. EKG during lexiscan infusion revealed no significant ischemia or infarction. EKG post infusion revealed no significant ischemia or infarction [There were no cardiac dysrhythmias pretest, during pharmacologic infusion, or recovery]. [There was no complaint of chest discomfort during pharmacologic infusion or recovery]. The examination was discontinued secondary to completion of protocol. Impression: 1. Lexiscan stress test test is negative for Lexiscan infusion induced EKG changes of ischemia. 2. Lexiscan stress test test is negative for Lexiscan infusion induced chest pain. 3. Results of the nuclear portion of the test is as below Myocardial perfusion imaging study: Technique: The patient was injected with [14.8] millicuries of technetium 99m Cardiolite and subsequently rest SPECT Cardiolite nuclear imaging was obtained in the horizontal long, vertical long, and short axis views. The patient underwent pharmacologic [Regadenoson 0.4mg] evaluation. Please see above for details. The patient was injected with 44.5 millicuries of technetium 99m Cardiolite and subsequently stress SPECT Cardiolite nuclear imaging was obtained in the horizontal long, vertical long, and short axis views. A gated Cardiolite study at peak stress was obtained. Interpretation: Rest and stress SPECT Cardiolite nuclear imaging status post realignment, normalization, and attenuation correction demonstrate no evidence of significant ischemia or infarction. Gated images reveal no significant regional wall motion abnormalities. The reported LVEF is 70%. Impression: 1. There is no evidence of significant ischemia or infarction. 2. Estimated ejection fraction is 70%. This note was generated with Qubitation software. It may contain incorrect words, spelling, and punctuation that were not noted in checking the note before signing.
--- NOTE | 2023-07-26 13:48 | PN.HOSP_ITS ---
Reason for Visit Reason for Visit: Diagnoses Thrombocytopenia, unspecified (07/24/23) Hypothyroidism, unspecified (07/24/23) Obesity, unspecified (07/24/23) Non-ST elevation (NSTEMI) myocardial infarction (07/24/23) Chronic pansinusitis (07/24/23) Bradycardia, unspecified (07/24/23) Dizziness and giddiness (07/24/23) Syncope and collapse (07/24/23) Other specified abnormal findings of blood chemistry (07/24/23) Body mass index [BMI] 34.0-34.9, adult (07/24/23) Subjective Subjective Patient admitted on 07/23 for episodes of dizziness with near syncope over the past 2 weeks. Echo on admit showed normal EF, no other concerning findings. Stress test on 07/25 was normal. Patient has had persistent bradycardia since admission despite being off home beta-meme and blood pressures have also been fairly normal off some of his home blood pressure medications. Saw patient at the bedside this morning, present. Patient was sitting up fairly comfortably in bed, conversing normally, in no acute distress. He stated his dizziness with walking around felt moderately improved today. His did reiterate concern that patient has not had issues like this in the past and she would like to see continued improvement prior to discharge. No other acute concerns morning. Objective Data Objective Data Vital Signs: Vital Signs Temp Pulse Resp BP Pulse Ox O2 Del Method 97.6 F L 55 L 18 133/71 H 98 Room Air 07/26/23 10:51 07/26/23 10:51 07/26/23 10:51 07/26/23 10:51 07/26/23 10:51 07/26/23 10:51 Oxygen Delivery Method Room Air Weight: 103.9 kg Body Mass Index (BMI) 34.8 Intake & Output: Intake and Output for Last 24 Hours 07/24/23 07/25/23 07/26/23 23:59 23:59 23:59 Intake Total 1000 / 1000 480 / 480 Balance 1000 / 1000 480 / 480 Lab / Micro Data 07/25/23 06:35 07/25/23 06:35 Physical Exam Const alert, oriented x3 and no apparent distress Constitutional Narrative: Pleasant middle-age male, obese, sitting comfortably in bed, conversing normally, no acute distress. General Appearance: cooperative and comfortable HEENT normocephalic, head/scalp atraumatic, hearing grossly normal bilaterally, nasal mucous membranes and turbinates normal and moist oral mucous membranes Eyes PERRL, EOMs intact bilaterally and conjunctivae normal Neck full ROM Chest inspection of chest normal Resp normal respiratory effort, normal air movement, no use of accessory muscles and clear to auscultation bilaterally Cardio regular rate, regular rhythm, no murmurs and peripheral pulses 2+ throughout GI normal to inspection, nondistended, normoactive bowel sounds, soft to palpation, non-tender and non-distended Back/Spine normal ROM Extremity normal to inspection, full ROM and no pedal edema Skin no rashes or lesions noted Neuro moves all extremities and no focal motor deficits Speech: speech normal Psych mental status grossly normal Assessment & Plan Assessment/Plan (1) Bradycardia: (2) Elevated troponin: (3) Dizziness: (4) Pansinusitis: QUALIFIERS: Chronicity: unspecified Qualified Code(s): J32.4 - Chronic pansinusitis PLAN: Plan Patient is a 62-year-old male who presented [facility] ED on 07/24/2023 with dizziness and near syncopal episodes. 1. Elevated troponin of unclear etiology, dizziness and presyncopal symptoms ? Cardiology following. Troponin trend 283 > 242 > 273 on admit. EKG showed sinus bradycardia, no ST changes, otherwise normal. Echo 07/23 showed EF 65%, no regional wall motion abnormalities mildly enlarged LA, no other abnormalities. Nuclear stress test on 07/25 showed EF 70%, no evidence of ischemia or infarction. Highest concern is that patient's symptoms are related to overmedication. Medication adjustments as noted below. Patient with good fu nctional status, no need for therapy and good for home on discharge. 2. Sinus bradycardia ? Cardiology following as above. Telemetry has shown sinus bradycardia in the 40s to 50s for majority of this hospitalization. Was on bisoprolol at home, discontinued on admission with continued bradycardia. Continue to hold beta- meme. 3. Hypertension ? Home regimen of amlodipine 10 mg daily, lisinopril 20 mg daily, bisoprolol?hydrochlorothiazide 5?6.25 mg twice daily. Currently treating with amlodipine 5 mg daily and lisinopril 10 mg daily. Monitor blood pressure, adjust regimen as needed. 4. Pansinusitis ? Noted on CT head on admit. Patient denies URI type symptoms but unclear if this could be related to his dizziness and presyncopal symptoms on arrival. Will complete 7-day course of Augmentin for treatment. 5. Mild thrombocytopenia ? Platelets 122 on admit, stable at 123 on hospital day 2. Previously normal on last labs in 2021. Unclear etiology. Monitor. Chronic medical conditions: ? Obesity: BMI 34 on admit. Encouraged lifestyle modifications. Complicates hospital course, care and prognosis. ? Hyperlipidemia: Lipid panel on admit with LDL 42, HDL 21. Continue home atorvastatin. ? Hypothyroidism: TSH normal on admit. Continue home Synthroid. ? GERD: Stable. Continue home PPI. ? Vitamin B12 deficiency: Continue home supplement. ? Insomnia: Continue home trazodone as needed at night. DVT prophylaxis: Lovenox CODE STATUS: Full code, verified Expected disposition: Home, 1 to 2 days Total clinical time spent by myself addressing the patient's medical issues, reviewing all the data, and collaborating with patient's care team: 35 minutes.
[2023-07-27 04:05] VITALS: BP 128/70; PULSE 64; RESP 18; TEMP 36.7; O2SAT 96
[2023-07-27] MEDS: Levothyroxine 100 MCG Tablet 200 MCG PO (05:34)
[2023-07-27 05:43] LABS: Hematocrit 41.3 % (40-54); Hemoglobin 14.2 g/dL (13.0-16.5); Mean Corp Hgb Conc 34.4 g/dL (32-36); Mean Corpuscular Hgb 30.3 pg (27.0-32.0); Mean Corpuscular Volume 88.1 fL (80-94); Mean Platelet Vol. 12.1 fl (6.2-12.0); Platelet Count 109 K/mm3 (150-450); RBC Distribution Width CV 12.5 % (11.6-14.6); RBC Distribution Width SD 40.5 fl (35.1-43.9); Red Blood Count 4.69 M/mm3 (4.6-6.2); White Blood Count 5.3 K/mm3 (4.4-11.0)
[2023-07-27 06:25] LABS: Anion Gap 3 (5-15); BUN 10 mg/dL (7-18); BUN/Creat Ratio 9.8 RATIO (10-20); Calcium,Total 8.6 mg/dL (8.5-10.1); Chloride 109 mmol/L (98-107); Creatinine, Serum 1.02 mg/dL (0.70-1.30); EST Glomerular Filtration Rate 78 mL/min (>60); Est Glom Filt Rate - Afr Amer 95 mL/min (>60); Glucose 146 mg/dL (74-106); Potassium 3.5 mmol/L (3.5-5.1); Sodium Level 140 mmol/L (136-145)
[2023-07-27 10:10] VITALS: BP 131/73; PULSE 63; RESP 16; TEMP 36.3; O2SAT 96
[2023-07-27] MEDS: Lactobacillis Acidophilus 2 CAP PO (10:16)
[2023-07-27] MEDS: amLODIPine 5 MG Tablet PO (10:17)
[2023-07-27] MEDS: Aspirin E.C. 81 MG Tablet PO (10:36)
[2023-07-27] MEDS: Acetaminophen 325 MG Tablet 650 MG PO (10:36)
[2023-07-27] MEDS: Atorvastatin Calcium 10 MG Tablet PO (10:36)
[2023-07-27] MEDS: Pantoprazole Sodium 20 MG Tablet PO (10:36)
--- NOTE | 2023-07-27 11:37 | DCINST_ITS ---
Discharge Instructions Diet Discharge Diet: 1999 Calorie Control Diet and Carb Control Diet Activity Discharge Activity: No Restrictions Return to work on:: 07/30/23 Follow Up Care Test Results: Test results from this visit will be discussed in further detail at your follow- up appointment, if applicable. Discharge Plan Admission Admit Date/Time: 07/24/23 15:31 Primary Reason for Your Visit: dizziness Attending Provider: Amado Carbajal Primary Care Provider: Demarco Hernandez Consulting Providers: Jose Driscoll; Coy Wills; Jeff Sahu Instructions Forms: Work Excuse Discharge Orders/Prescriptions Prescriptions: New amlodipine 5 mg Tablet 5 mg PO DAILY 30 Days Qty: 30 2RF lisinopril 10 mg Tablet 10 mg PO DAILY 30 Days Qty: 30 2RF amoxicillin-pot clavulanate 875-125 mg Tablet 1 tab PO BIDCM 5 Days Qty: 10 0RF Continued potassium chloride 20 mEq tablet,ER particles/crystals 1 tab PO DAILY Patient Comments: Take 1 tablet by mouth once daily. omeprazole 20 mg Capsule,Delayed Release(Dr/Ec) 20 mg PO DAILY omega-3 fatty acids Capsule 2,000 mg PO DAILY trazodone 50 mg tablet 50 mg PO QHS PRN PRN (Reason: insomnia) atorvastatin 10 mg tablet 10 mg PO DAILY levothyroxine 200 mcg tablet 200 mcg PO .COMPLEX Rx Instructions: 200 mcg orally SUNDAY, SUNDAY, SUNDAY, SUNDAY, AND SUNDAY; cyanocobalamin (vitamin B-12) 1,000 mcg capsule 1,000 mcg PO DAILY aspirin [Adult Aspirin Regimen] 81 mg tablet,delayed release (DR/EC) 81 mg PO DAILY Discontinued bisoprolol-hydrochlorothiazide 5-6.25 mg tablet 2 tab PO DAILY Patient Comments: TAKE 2 TABLETS BY MOUTH EVERY DAY amlodipine 10 mg tablet 1 tab PO DAILY Patient Comments: TAKE 1 TABLET BY MOUTH EVERY DAY naproxen 375 mg Tablet 375 mg PO BIDCM Qty: 60 0RF Rx Instructions: Take with food lisinopril 20 mg tablet 20 mg PO DAILY Referrals / Follow Up: Demarco Hernandez MD [Primary Care Provider] - Disposition Disposition (needs filled in before D/C Order can be placed): Home, Self Care
--- NOTE | 2023-07-27 11:40 | DS.PCM_ITS ---
Providers Date of Admission: 07/24/23 Date of Discharge: 07/27/23 Primary Care Physician: Dr. Demarco Hernandez MD Consultations 07/24/23 16:53 Consult: Cardiology Routine Consulting Provider: Joes Driscoll Reason for Consult: Non-STEMI EMERGENT Consult: No MD Notified: Yes Date Notified: 07/24/23 Time Notified: 15:33 Method of Notification: Text Method of Consult:: In-Person Reason For Visit: NON STEMI, NEAR SYNCOPE & PANSINUSITIS ON CT Diagnosis Discharge Diagnosis (1) Bradycardia: Status: Acute Code(s): R00.1 - Bradycardia, unspecified (2) Elevated troponin: Status: Acute Code(s): R79.89 - Other specified abnormal findings of blood chemistry (3) Dizziness: Status: Acute Code(s): R42 - Dizziness and giddiness (4) Pansinusitis: Status: Acute Code(s): J32.4 - Chronic pansinusitis Qualifiers: Chronicity: unspecified Qualified Code(s): J32.4 - Chronic pansinusitis Medications at Discharge Home Medications potassium chloride 20 mEq tablet,extended release(part/cryst) 1 tab PO DAILY supplement 10/15/21 omega-3 fatty acids 2,000 mg PO DAILY supplement 10/19/21 omeprazole 20 mg capsule,delayed release 20 mg PO DAILY acid reflux 10/19/21 aspirin 81 mg tablet,delayed release (Adult Aspirin Regimen) 81 mg PO DAILY heart health 07/24/23 atorvastatin 10 mg tablet 10 mg PO DAILY cholesterol 07/24/23 cyanocobalamin (vitamin B-12) 1,000 mcg capsule 1,000 mcg PO DAILY supplement 07/24/23 levothyroxine 200 mcg tablet 200 mcg PO .COMPLEX disorder of thyroid gland 07/24/23 trazodone 50 mg tablet 50 mg PO QHS PRN PRN insomnia 07/24/23 amlodipine 5 mg tablet 5 mg PO DAILY 30 days #30 tabs 07/27/23 amoxicillin 875 mg-potassium clavulanate 125 mg tablet 1 tab PO BIDCM 5 days #10 tabs 07/27/23 lisinopril 10 mg tablet 10 mg PO DAILY 30 days #30 tabs 07/27/23 Hospital Course Operations None Procedures EKG, Stress test, Transthoracic echo and - (Chest x-ray, CT brain without contrast) Summary of Care Provided Minutes Spent on Discharge: 35 Hospital Course: Patient is a 62-year-old male who presented [facility] ED on 07/24/2023 with dizziness and near syncopal episodes. Hospital course as noted below. Discharged home with no therapy needs in stable condition on 07/26. 1. Elevated troponin of unclear etiology, dizziness and presyncopal symptoms Troponin trend 283 > 242 > 273 on admit. EKG showed sinus bradycardia, no ST changes, otherwise normal. Echo 07/23 showed EF 65%, no regional wall motion abnormalities mildly enlarged LA, no other abnormalities. Nuclear stress test on 07/25 showed EF 70%, no evidence of ischemia or infarction. ? Cardiology followed. Seems most likely that the patient's symptoms were secondary to overmedication. Medication adjustments made as noted below with improvement in dizziness and presyncopal symptoms. Patient with good functional status, no need for therapy on discharge. 2. Sinus bradycardia ? Cardiology followed as above. Telemetry showed sinus bradycardia in the 40s to 50s on 07/24 and 07/25, improved to the 60s to 70s off of home beta-meme. Was on bisoprolol at home, discontinued on admission and will hold on discharge. 3. Hypertension ? Home regimen of amlodipine 10 mg daily, lisinopril 20 mg daily, bisoprolol?hydrochlorothiazide 5?6.25 mg twice daily. De-escalated regimen to amlodipine 5 mg daily and lisinopril 10 mg daily during hospitalization with good blood pressure control. Will continue this reduced regimen on discharge. 4. Pansinusitis ? Noted on CT head on admit. Patient denies URI type symptoms but unclear if this could be related to his dizziness and presyncopal symptoms on arrival. Will complete 7-day course of Augmentin for treatment, stop date 07/30. 5. Mild thrombocytopenia ? Platelets 122 on admit, stable at 123 on hospital day 2. Previously normal on last labs in 2021. Unclear etiology. Outpatient follow-up. Chronic medical conditions: ? Obesity: BMI 34 on admit. Encouraged lifestyle modifications. Complicates hospital course, care and prognosis. ? Hyperlipidemia: Lipid panel on admit with LDL 42, HDL 21. Continue home atorvastatin. ? Hypothyroidism: TSH normal on admit. Continue home Synthroid. ? GERD: Stable. Continue home PPI. ? Vitamin B12 deficiency: Continue home supplement. ? Insomnia: Continue home trazodone as needed at night. Total clinical time spent by myself addressing the patient's medical issues, reviewing all the data, and collaborating with patient's care team: 35 minutes. Physical Exam Const alert, oriented x3 and no apparent distress Constitutional Narrative: Pleasant middle-age male, obese, sitting comfortably in bed, conversing normally, no acute distress. General Appearance: cooperative and comfortable HEENT normocephalic, head/scalp atraumatic, hearing grossly normal bilaterally, nasal mucous membranes and turbinates normal and moist oral mucous membranes Eyes PERRL, EOMs intact bilaterally and conjunctivae normal Neck full ROM Chest inspection of chest normal Resp normal respiratory effort, normal air movement, no use of accessory muscles and clear to auscultation bilaterally Cardio regular rate, regular rhythm, no murmurs and peripheral pulses 2+ throughout GI normal to inspection, nondistended, normoactive bowel sounds, soft to palpation, non-tender and non-distended Back/Spine normal ROM Extremity normal to inspection, full ROM and no pedal edema Skin no rashes or lesions noted Neuro moves all extremities and no focal motor deficits Speech: speech normal Psych mental status grossly normal Weight / BMI Weight Weight: 103.9 kg Body Mass Index (BMI) 34.8 ABG / Lab / Microbiology Data 07/27/23 05:05 07/27/23 05:05 Laboratory: Laboratory Results - last 24 hr 07/27/23 05:05: WBC 5.3, RBC 4.69, Hgb 14.2, Hct 41.3, MCV 88.1, MCH 30.3, MCHC 34.4, RDW Std Deviation 40.5, RDW Coeff of Trace 12.5, Plt Count 109 L, MPV 12.1 H , Sodium 140, Potassium 3.5, Chloride 109 H, Carbon Dioxide 28.0, Anion Gap 3 L, BUN 10, Creatinine 1.02, Estim Creat Clear Calc 86.60, Est GFR (MDRD) Af Amer 95, Est GFR (MDRD) Non-Af 78, BUN/Creatinine Ratio 9.8 L, Glucose 146 H, Calcium 8.6 D/C Instructions Discharge Diet: 2000 Calorie Control Diet and Carb Control Diet Return to work on: 07/30/23 Meaningful Use Info Meaningful Use Meaningful Use Diagnoses (Choose all that apply): None applicable Ischemic Stroke Statin Dosing Therapy Reference: STATIN DOSE THERAPY REFERENCE: * Patients > 75 years receive moderate or high dose statin therapy. * Patients 75 years or YOUNGER should receive HIGH intensity statin dose unless contraindicated. You will be required to document reason for non-treatment if statin daily dose does not meet guidelines. HIGH DOSE STATIN THERAPY DAILY Atorvastatin > than or = to 40 mg Rosuvastatin > than or = to 20 mg Amlodipine + Atorvastatin > than or = to 2.5/40 mg Ezetimibe + Simvastatin 10/80 mg Simvastatin 80mg Discharge Plan Admission Admit Date/Time: 07/24/23 15:31 Primary Reason for Your Visit: dizziness Attending Provider: Amado Carbajal Primary Care Provider: Demarco Hernandez Consulting Providers: Jose Driscoll; Coy Wills; Jeff Sahu Instructions Forms: Work Excuse Discharge Orders/Prescriptions Prescriptions: New amlodipine 5 mg Tablet 5 mg PO DAILY 30 Days Qty: 30 2RF lisinopril 10 mg Tablet 10 mg PO DAILY 30 Days Qty: 30 2RF amoxicillin-pot clavulanate 875-125 mg Tablet 1 tab PO BIDCM 5 Days Qty: 10 0RF Continued potassium chloride 20 mEq tablet,ER particles/crystals 1 tab PO DAILY Patient Comments: Take 1 tablet by mouth once daily. omeprazole 20 mg Capsule,Delayed Release(Dr/Ec) 20 mg PO DAILY omega-3 fatty acids Capsule 2,000 mg PO DAILY trazodone 50 mg tablet 50 mg PO QHS PRN PRN (Reason: insomnia) atorvastatin 10 mg tablet 10 mg PO DAILY levothyroxine 200 mcg tablet 200 mcg PO .COMPLEX Rx Instructions: 200 mcg orally SUNDAY, SUNDAY, SUNDAY, SUNDAY, AND SUNDAY; cyanocobalamin (vitamin B-12) 1,000 mcg capsule 1,000 mcg PO DAILY aspirin [Adult Aspirin Regimen] 81 mg tablet,delayed release (DR/EC) 81 mg PO DAILY Discontinued bisoprolol-hydrochlorothiazide 5-6.25 mg tablet 2 tab PO DAILY Patient Comments: TAKE 2 TABLETS BY MOUTH EVERY DAY amlodipine 10 mg tablet 1 tab PO DAILY Patient Comments: TAKE 1 TABLET BY MOUTH EVERY DAY naproxen 375 mg Tablet 375 mg PO BIDCM Qty: 60 0RF Rx Instructions: Take with food lisinopril 20 mg tablet 20 mg PO DAILY Referrals / Follow Up: Demarco Hernandez MD [Primary Care Provider] - Disposition Disposition (needs filled in before D/C Order can be placed): Home, Self Care Charges/Coding Visit Charges Inpatient E&M: 67804 Disch Hosp >30min
--- NOTE | 2023-07-27 12:00 | CASEMGMT ---
RAMANDEEP WANG NOTE: Discharge order is in. RN CM to room. Pt sitting up in chair in room. in room w/pt. They deny having any discharge needs/concerns. Ana BSN RAMANDEEP CM
[2023-07-27 12:08] VITALS: BP 135/65; PULSE 56; RESP 16; TEMP 36.4; O2SAT 97
[2023-07-27] MEDS: Lisinopril 10 MG Tablet PO (12:10)
[2023-07-27] MEDS: Cyanocobalamin 500 MCG Tablet 1000 MCG PO (12:10)
[2023-07-27] MEDS: Amox/Clavulanate 875 MG Tablet PO (12:11)
[2023-07-27] MEDS: Omega-3 Acid Ethyl Esters 1 GM Capsule 2 GM PO (12:11)
--- NOTE | 2023-07-27 13:37 | PHA.DC_ITS ---
Pharmacy [facility] has performed discharge medication reconciliation and counseling for this patient. The patient's discharge medication list was reviewed for discrepancies and discrepancies were resolved. The patient was counseled on the following discharge medications and changes in medications for homegoing were reviewed. The Reason for Use, instructions for use, and potential side effects were reviewed for all new medications. The patient's questions regarding all of their medications were answered. 1. Amlodipine 5 mg PO daily 2. Lisinopril 10 mg PO daily 3. Amoxicillin/clavulanate 875/125 mg PO BID x 5 days The patient was able to verbally demonstrate an understanding of their discharge medications. Medications at Discharge Home Medications potassium chloride 20 mEq tablet,extended release(part/cryst) 1 tab PO DAILY supplement 10/15/21 omega-3 fatty acids 2,000 mg PO DAILY supplement 10/19/21 omeprazole 20 mg capsule,delayed release 20 mg PO DAILY acid reflux 10/19/21 aspirin 81 mg tablet,delayed release (Adult Aspirin Regimen) 81 mg PO DAILY heart health 07/24/23 atorvastatin 10 mg tablet 10 mg PO DAILY cholesterol 07/24/23 cyanocobalamin (vitamin B-12) 1,000 mcg capsule 1,000 mcg PO DAILY supplement 07/24/23 levothyroxine 200 mcg tablet 200 mcg PO .COMPLEX disorder of thyroid gland 07/24/23 trazodone 50 mg tablet 50 mg PO QHS PRN PRN insomnia 07/24/23 amlodipine 5 mg tablet 5 mg PO DAILY 30 days #30 tabs 07/27/23 amoxicillin 875 mg-potassium clavulanate 125 mg tablet 1 tab PO BIDCM 5 days #10 tabs 07/27/23 lisinopril 10 mg tablet 10 mg PO DAILY 30 days #30 tabs 07/27/23
== END 2023-07-27 14:35 | disposition home or self-care (01) | DRG 310 ==
LOC: ED 12:59 → PCU 16:20
PROVIDERS: Admitting Provider Internal Medicine; Emergency Provider Emergency Medicine; PCP Family Medicine; Visit Provider Hospitalist
DX: R00.1 Bradycardia, unspecified (principal); D69.6 Thrombocytopenia, unspecified; E89.0 Postprocedural hypothyroidism; I10 Essential (primary) hypertension; K21.9 Gastro-esophageal reflux disease without esophagitis; E78.5 Hyperlipidemia, unspecified; E53.8 Deficiency of other specified B group vitamins; I25.2 Old myocardial infarction; J32.4 Chronic pansinusitis; E66.9 Obesity, unspecified; R55 Syncope and collapse; Z87.891 Personal history of nicotine dependence; Z68.34 Body mass index [BMI] 34.0-34.9, adult; R42 Dizziness and giddiness; Z79.1 Long term (current) use of non-steroidal anti-inflammatories (NSAID); R79.89 Other specified abnormal findings of blood chemistry
CPT/HCPCS: 36415; 70450; 71045; 78452; 80048; 80053; 80061; 83735; 84443; 84484; 85025; 85027; 85379; 93005; 93017; 93306; 99285; A9500; J7030; Q9957; A4216; C8929; J2785

== ENCOUNTER → 2024-10-10 | Outpatient (CLI) | payer OTHER, SELFPAY ==
--- NOTE | 2024-10-10 09:52 | US_ITS ---
PROCEDURE: ABD LIMITED W/ ELASTOGRAPHY REASON FOR EXAM: BURGOS COMPARISON: None. TECHNIQUE: Right upper quadrant abdominal ultrasound. [facility]jah ElastQ Imaging shear wave elastography for non-invasive assessment of liver tissue stiffness. Elijah EPIQ Elite. FINDINGS: LIVER: Size: Enlarged (hepatomegaly) Length: 19.3 cm Echotexture: Diffusely echogenic suggesting fatty infiltration Contour: Normal Lesions: There are 2, subcentimeter cyst in the inferior aspect of the right lobe of the liver. Elastography: EQI Med: 10.2 kPa EQI Med Leobardo: 1.8 m/s IQR/Med: 18 %* GALLBLADDER: Surgically absent. COMMON BILE DUCT: Dilated measuring up to 11.6 mm . PANCREAS: Visualized portions are unremarkable. The distal body and tail are obscured by bowel gas. Visualized portions of the right kidney are unremarkable. Small right renal cysts. No right upper quadrant ascites. US/ABD Limited w/ Elastography IMPRESSION: MODERATE TO SEVERE HEPATIC FIBROSIS Hepatomegaly. Fatty infiltration of the liver. Subcentimeter cysts in the right lobe of the liver. Right renal cysts. Reference Values: SRU <1.37 m/s (5.7kPa): No to mild fibrosis 1.37 m/s - 2.2 m/s: Moderate to severe fibrosis >2.2 m/s (15kPa): Significant fibrosis / cirrhosis METAVIR Score F2 or higher: 1.34 m/s (5.7kPa) F3 or higher: 1.55 m/s (7.3kPa) F4: 1.80 m/s (10kPa) * If the IQR/Med is >30%, the variance in the measurements is a large and the a ccuracy of the measurement may be in question. Reading Location: [place] [id number]
== END | disposition home or self-care (01) ==
PROVIDERS: PCP Family Medicine; Referring Provider Physician Assistant; Visit Provider Physician Assistant
DX: K75.81 Nonalcoholic steatohepatitis (NASH) (principal)
CPT/HCPCS: 76705; 76981